=== PATIENT | female | born 1990 | race Caucasian/White ===

== ENCOUNTER 2017-07-03 08:59 | Emergency (ER) | payer MEDICAID ==
[~2017-07-03] VITALS: Ht 165.1 cm; Wt 72.6 kg
[~2017-07-03 08:59] MED LIST: TOPIRAMATE 25MG25 MG PO
[2017-07-03 09:24] LABS: HEMOGLOBIN 13.6 g/dL (12.2-16.2); LYMPH % 14.4 % (10-50.0)
--- NOTE | 2017-07-03 11:01 | RADIOLOGY REPORT PS360 ---
CT ABD PELVIS W/ CONTRAST CLINICAL INDICATION: ABD PAIN, NAUSEA, VOMITING ORDERING PHYSICIAN: Ellis Harrell MD PATIENT AGE: 27 years COMPARISON: None TECHNIQUE: Axial images obtained with sagittal and coronal reformats. PROCEDURE: Oral Contrast: None IV Contrast: 75 mL [id number]. FINDINGS: Lung bases are clear. The liver, gallbladder, spleen, adrenal glands, and pancreas have an unremarkable appearance. No renal calculi or ureteral calculi or hydronephrosis or suspicious renal mass. There is some lobulation involving the left kidney posteriorly consistent with some mild renal cortical scarring. No evidence of appendicitis, diverticulitis, intestinal obstruction, or free air. There is an oval area of rim like contrast enhancement in the right adnexal region at 3 x 2 cm slightly irregular with central isoattenuation consistent with a ruptured ovarian cyst. There is a moderate amount fluid in the cul-de-sac and in the right adnexa. Urinary bladder has an unremarkable appearance. No acute bony anomalies. IMPRESSION: The findings are consistent with ruptured right ovarian cyst with moderate amount fluid in the cul-de-sac and right adnexa No evidence of appendicitis or obstructing ureteral calculus
--- NOTE | 2017-07-03 11:38 | Emergency Room Report ---
History of Present Illness Time Seen by [id number] Presenting Problem in Triage Pt arrived:Wheelchair Presenting Problem:PT REPORTS VOMITTING FOR 2 DAYS. PT REPORTS UNABLE TO KEEP PO INTAKE DOWN PT REPORTS UPPER ABD PAIN THAT IS SHARP AND CONSTANT IN NATURE, PT STATES PAIN IS WORSE AFTER VOMITTING. REPORTS LOOSE PRODUCTIVE COUGH Onset of symptoms date/time:07/01/17/ or onset unknown for:MEDICAL HX UNKNOWN Treatment Prior to Arrival: RADIOLOGIC THERAPIST Provided by: Sepsis Risk Assessment: Temp: 98.4 B/P: 127/76 MAP: 74 Pulse: 58 Resp: 20 Recent fever? N Clinical Suspician of Infection? N Mental Status: 1 - Regular (Normal Baseline) Sepsis Risk:Low Sepsis Risk Have you (or family members/close friends) recently traveled outside the [place]? N If Yes, where/when: Have you had exposure to infectious disease within the past month? N TB? Other? Specify: Source patient, RN notes reviewed, family, RN/MD Exam Limitations no limitations Comment This is a 27-year-old lady brought in by family friend with RIGHT upper quadrant abdominal pain, intractable nausea and vomiting for the past 4 days, unable to hold anything down over the past 24 hours. The patient denies any previous similar episodes in the past. Patient has any fever, denies any diarrhea, denies any recent travel or exposure to sick contacts. ALLERGIES Coded Allergies: aspirin ("CAUSES SEIZURES" 07/03/17) ketorolac (HEADACHES 07/03/17) History Medical History General CAD? No Angina: No LA: No Hypertension? No Hyperlipidemia? No CHF? No DVT? No PE? No COPD? No Asthma? No Anemia? No GERD? No Gastric ulcers? No GI Bleed? No Hernia? No Thyroid Problems? No Hypothyroidism? No CVA? No Seizures? Yes Diabetes? No Renal Insuffiency? No End Stage Renal Disease? No UTI? No Stones? No GB Disease: No Nephritic Syndrome? No Asplenia? No Hepatitis? No Sickle Cell Disease? No Arthritis? No Migraines? No Cataracts? No Glaucoma? No MRSA? No HIV? No TB? No Anxiety? No Depression? No Cancer? No More? 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 Social History Smoking Hx Smoker: Current Every Day Smoker Tobacco: Yes Type Cigarettes Packs/day < 1 Pack Alcohol Alcohol: No Review of Systems All Other Systems Reviewed and Negative Gastrointestinal see HPI, abdominal pain, denies diarrhea, nausea, vomiting Physical Exam Vital Signs Vital Signs Date Time Temp Pulse Resp B/P Pulse O2 O2 Flow FiO2 Ox Delivery Rate 07/03 1346 98.6 74 18 137/81 100 07/03 1340 98.6 74 18 137/81 100 07/03 1204 58 20 131/81 100 07/03 1141 20 07/03 1131 58 20 127/76 100 07/03 1001 71 20 123/73 97 07/03 0914 20 07/03 0901 98.4 63 18 114/54 100 General Appearance normal appearance, WD/WN, moderate distress Respiratory Status Yes: trachea midline, chest symmetrical, non tender chest. No: respiratory distress. Lung Sounds bilateral: normal breath sounds, lungs clear. Cardiovascular normal exam, regular rate/rhythm, no peripheral edema, no gallop, no JVD, no murmur, no rub, normal peripheral pulses Gastrointestinal normal bowel sounds, soft, no organomegaly, tenderness (RUQ), no peritoneal signs Extremities non-tender, normal range of motion, normal inspection Neurologic alert, tank riveter II-XII nml as tested, normal exam, oriented x 3 Mental status normal mood/affect Skin intact, normal color, warm/dry Lymphatic no adenopathy Medical Decision Making LABS/Meds/Orders Pt receiving controlled substance in ED? No Comment Upon reevaluation patient appears medically stable, somewhat improved, with occasional recurrent episodes of nausea or vomiting. Given the patient's lack of complete improvement I have informed patient that she could be admitted for observation. Patient, however, refused the admission, wants to go home, aware of possible complications. Additional IV medications, as well as, additional IV fluids ordered. Upon reevaluation patient is asleep, in no distress, with no further nausea or vomiting. Patient will be discharged home with instructions to follow-up with one of the gynecologists, Dr. Jean or Dr. Gonsales, if no better, per discharge instructions. Results/Orders Laboratory Tests 07/03/17 0915: Sodium 140, Potassium 3.2 L, Chloride 104, Carbon Dioxide 23, BUN 6 L, Creatinine 0.9, Estimated Creat Clear 106, Estimated GFR (MDRD) 74, Glucose 135 H, Calcium 9.4, Total Bilirubin 0.8, AST 17, ALT 27, Alkaline Phosphatase 109, Total Protein 8.6 H, Albumin 4.4, Globulin 4.2 H, Albumin/Globulin Ratio 1.0 L, Amylase 37, Lipase 79, WBC 14.0 H, RBC 5.55 H, Hgb 13.6, Hct 42.3, MCV 76.2 L, RDW 15.0, Plt Count 420, MPV 8.4, Gran % 78.6, Gran # 11.0 H, Lymphocytes % 14.4, Monocytes % 4.6, Eosinophils % 1.9, Basophils % 0.4, Lymphocytes # 2.0, Monocytes # 0.6, Eosinophils # 0.3, Basophils # 0.1, PUBS MCHC 32.2, MCH 24.5 L Current Medication Orders Sig/Zhou Start time Last Medication Dose Route Stop Time Status Admin Sodium Chloride 1,000 ML .Q1H1M 07/03 1230 DC IV 07/03 1330 Sodium Chloride 10 ML PRN PRN 07/03 1230 DCD IV 07/04 1221 Morphine Sulfate 2 MG ONCE ONE 07/03 1145 DC 07/03 IV 07/03 1146 1141 Prochlorperazine 10 MG ONCE ONE 07/03 1145 DC 07/03 Edisylate IV 07/03 1146 1140 Morphine Sulfate 0 .STK-MED ONE 07/03 1140 DC .ROUTE Prochlorperazine 0 .STK-MED ONE 07/03 1139 DC Edisylate .ROUTE Potassium Chloride 40 MEQ ONCE ONE 07/03 1130 DC 07/03 PO 07/03 1131 1126 Sodium Chloride 1,000 ML .Q1H1M 07/03 1130 DC 07/03 IV 07/03 1230 1125 Sodium Chloride 10 ML PRN PRN 07/03 1130 DCD IV 07/04 1116 Potassium Chloride 0 .STK-MED ONE 07/03 1125 DC PO Sodium Chloride 1,000 ML .STK-MED ONE 07/03 1121 DC IV Iopamidol 75 ML ONCE ONE 07/03 1045 DC 07/03 IV 07/03 1046 1035 Sodium Chloride 10 ML PRN PRN 07/03 1045 DC 07/03 IV 07/03 1204 1035 Sodium Chloride 1,000 ML .Q1H1M 07/03 1045 DC IV 07/03 1145 Sodium Chloride 10 ML PRN PRN 07/03 1045 DCD IV 07/04 1041 Ondansetron HCl 0 .STK-MED ONE 07/03 1000 DC .ROUTE Ondansetron HCl 4 MG ONCE ONE 07/03 0930 DC 07/03 IV 07/03 0931 1000 Morphine Sulfate 2 MG ONCE ONE 07/03 0915 DC 07/03 IV 07/03 0916 0914 Promethazine HCl 12.5 MG ONCE ONE 07/03 0915 DC 07/03 IV 07/03 0916 0913 Sodium Chloride 10 ML PRN PRN 07/03 0915 DCD IV 07/04 0902 Sodium Chloride 25 ML ONCE ONE 07/03 0915 CAN IV 07/03 09 Sodium Chloride 1,000 ML .Q1H1M 07/03 0915 DC 07/03 IV 07/03 1015 0925 Sodium Chloride 10 ML PRN PRN 07/03 0915 DCD IV 07/04 09 Morphine Sulfate 0 .STK-MED ONE 07/03 0910 DC .ROUTE Promethazine HCl 0 .STK-MED ONE 07/03 0910 DC .ROUTE Sodium Chloride 250 ML .STK-MED ONE 07/03 09 DC IV Orders Procedure Date/time Status DIET-NOTHING BY MOUTH 07/[address] ABD/PELVIS REQ 07/03 0951 Complete SERUM , QUAL 07/03 907 Complete URINALYSIS/COMPLETE 07/03 09 Active LIPASE 07/03 903 Complete DRUG ABUSE SCREEN (10) 07/03 903 Active CBC WITH AUTO DIFF 07/03 903 Complete CHEM 12 PROFILE 07/03 903 Complete AMYLASE 07/03 903 Complete IV SALINE LOCK 07/03 09 Active XRAY/CT/US XRAY/CT/US CT abdomen, pelvis CT interpretation by discussed w/radiologist CT Results abnormal Comment See radiologist's report, consistent with ruptured RIGHT ovarian cyst. Departure Departure Time of Disposition 1258 Disposition DC Home or Self Care(routine) Clinical Impression Primary Impression: Ruptured cyst of ovary Secondary Impressions: Abdominal pain Qualifiers: Abdominal location: unspecified location Qualified Code: R10.9 - Unspecified abdominal pain Dehydration Hypokalemia Nausea and vomiting Qualifiers: Vomiting type: unspecified Vomiting Intractability: unspecified Qualified Code: R11.2 - Nausea with vomiting, unspecified Condition STABLE Referrals [place] CALVO,Shiva Granado.: Today after leaving ER Ted CALVO,Lui Garcia.: Today after leaving ER GERARD MCARTHUR (Family) Patient Instructions DI for Dehydration -- Adult, DI for Hypokalemia, DI for Ovarian Cyst Additional Instructions Please take the medications prescribed as directed, follow-up with one of the deaf/hard of hearing specialist listed above within 3-5 days, if not better. Take the medication for nausea, Zofran, 20-30 minutes prior to eating. Drink plenty of fluids. Discharge Counseling Counseled pt/family regarding diagnosis, test results, medications/RX, home care, follow up needs Comment Please take the medications prescribed as directed, follow-up with one of the deaf/hard of hearing specialist listed above within 3-5 days, if not better. Take the medication for nausea, Zofran, 20-30 minutes prior to eating. Prescriptions Current Visit Scripts Ondansetron (Zofran 4MG Odt) 4 MG PO Q6HP PRN NAUSEA AND VOMITING #30 ODT ACETAMINOPHEN/DIPHENHYDRAMINE (Percogesic 325-12.5 MG Tablet) 1 TAB PO QIDP PRN pain #20 TAB POTASSIUM BICARBONATE/CIT AC (Effer-K 20 Meq Tablet Eff) 20 MEQ PO DAILY #3 TEF ED Critical Care Critical Care No at [id number]
[2017-07-03] MEDS ORDERED: PERCOGESIC1 TAB PO (13:01)
[2017-07-03] MEDS ORDERED: ZOFRAN ODT4 MG PO (13:01)
[2017-07-03] MEDS ORDERED: EFFER-K20 MEQ PO (13:03)
[2017-07-03 13:46] VITALS: BP 137/81
== END 2017-07-03 13:47 | disposition home or self-care (01) ==
LOC: ER 08:59
PROVIDERS: Emergency Medicine
DX: N83.201 Unspecified ovarian cyst, right side (principal); R10.11 Right upper quadrant pain; E86.0 Dehydration; E87.6 Hypokalemia
CPT/HCPCS: J2405; Q9967

== ENCOUNTER 2017-07-30 06:13 | Emergency (ER) | payer MEDICAID ==
[~2017-07-30] VITALS: Ht 165.1 cm; Wt 68.9 kg
[~2017-07-30 06:13] MED LIST changes: +EFFER-K20 MEQ PO; +PERCOGESIC1 TAB PO; +ZOFRAN ODT4 MG PO
--- OUTSIDE RECORDS SUMMARY | 2017-07-30 06:36 | External Medical Summary Rpt | CCD ---
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 [address] UG 00 12 12 00 6. 1 RI 69 AD Ac 40 -0 -1 00 TE 02 AM ti 60 4- 7- 0 03 S ve 58 20 20 AI JA 20 09 09 D ME 1 PH S AR E M #3 92 0 CE 00 12 12 00 30 10 RI 68 AD Ac PH 14 -0 -1 .0 TE 99 AM ti AL 39 2- 7- 00 15 S ve EX 89 20 20 AI JA IN 70 09 09 D ME 1 PH S 50 AR E 0 M MG #3 92 CA 0 PS UL E 00 12 12 00 8. 2 RI 68 AD Ac 40 -0 -1 00 TE 99 AM ti 60 2- 7- 0 14 S ve 58 20 20 AI JA 20 09 09 D ME 1 PH S AR E M #3 92 0 Immunization Name Date Rout CVX Reac Dose Comm Prov Is Faci e tion ent ider Refu lity Give sed n TDAP 06-[address] 8-20 CLAI CLAI VACC 16 RE RE INE BANDAR BANDAR 7 ONAL ONAL YRS/ > IM MEDI MEDI C C Procedures Procedure DOS Code Location Performer Comment RADEX 83342 ST [facility] GURJIT ANKLE 7 REGIONAL COMPLETE RADIOLOG MINIMUM [address] [facility] NAS BOOT 7 REGIONAL REGIONAL PNEUMATIC FAMILY FAMILY AND OR ME ME VACUUM PREFAB RADEX [address]762 ST [facility] JILL ANKLE 7 REGIONAL COMPLETE RADIOLOG MINIMUM 3 [place] [address] [facility] NAS COBOS TALUS 7 REGIONAL FRACTURE W/O EMERGENCY MANIPULAT ION THERAPEUT [address] NAS IC 7 REGIONAL REGIONAL PROPHYLAC MEDICAL MEDICAL TIC/DX INJECTION SUBQ/IM INJECTION J2550 ST NAS ST NAS 7 REGIONAL REGIONAL PROMETHAZ MEDICAL MEDICAL INE HCL UP TO 50 MG INJECTION J1885 [address] KETOROLAC MEDICAL MEDICAL TROMETHAM INE PER 15 MG BRNCDILAT 70188 ALLERGY, LIVAS RANJIT RSPSE 6 ASTHMA & SPMTRY IMMUNOLOG PRE&POST- Y BRNCDILAT ADMN PERCUTANE 18134 ALLERGY, LIVAS RANJIT OUS TESTS 6 ASTHMA & IMMUNOLOG W/ALLERGE Y YARITZA EXTRACTS OPHTH 75679 [facility] ANT MEDICAL 6 XM&EVAL COMPRE NEW PT 1/> VST ANES 55079 [facility] [place] [facility]ARN 6 REGIONAL DLVR FLWG MEDICAL C NEURAXIAL LABOR ANALG/ANE S 88428 [place] KIA DELIVERY 6 MEDICAL ONLY SERV FOUNDATIO N NEURAXIAL 54128 [facility] 6 REGIONAL ANALG/ANE MEDICAL S PLND C VAGINAL DELIVERY INITIAL 13418 [facility] 6 NAS CARE/DAY FAMILY 50 CARE MINUTES CLINI URNLS DIP 77448 [facility] 6 REGIONAL REGIONAL STICK/TAB MEDIC MEDIC LET RGNT NON-AUTO W/O MICRSCP URNLS DIP 73168 [facility] 6 REGIONAL REGIONAL STICK/TAB MEDIC MEDIC LET RGNT AUTO W/O MICROSCOP Y US PREG 72934 [facility] UTERUS 6 REGIONAL REGIONAL REAL TIME MEDIC MEDIC F/U TRNSABDL PER FETUS 92055 [facility] NONSTRESS 6 REGIONAL REGIONAL TEST MEDIC MEDIC URNLS DIP 91098 [facility] 6 REGIONAL REGIONAL STICK/TAB MEDIC MEDIC LET RGNT NON-AUTO W/O MICRSCP 07466 [facility] NONSTRESS 6 REGIONAL REGIONAL TEST MEDIC MEDIC URNLS DIP 37673 [facility] REGIONAL STICK/TAB MEDIC MEDIC LET REAGENT AUTO MICROSCOP Y URNLS DIP 33701 [facility] 6 REGIONAL REGIONAL STICK/TAB MEDIC MEDIC LET REAGENT AUTO MICROSCOP Y [address] [facility] NONSTRESS 6 REGIONAL REGIONAL TEST MEDIC MEDIC URNLS DIP [address] NAS 6 REGIONAL REGIONAL STICK/TAB MEDIC MEDIC LET RGNT NON-AUTO W/O MICRSCP [place] ADM [address] NAS PRQ ID 6 REGIONAL REGIONAL SUBQ/IM MEDIC MEDIC NJXS [address] D[address] NAS 6 REGIONAL REGIONAL STICK/TAB MEDIC MEDIC LET RGNT NON-AUTO W/O MICRSCP TDAP [address] NAS VACCINE 7 6 REGIONAL REGIONAL YRS/> IM MEDIC MEDIC URNLS DIP [address] NAS 6 REGIONAL REGIONAL STICK/TAB MEDIC MEDIC LET RGNT AUTO W/O MICROSCOP Y EVAL C/V [address] [facility] AMNIOTIC 6 REGIONAL REGIONAL FLUID MEDIC MEDIC PROTEIN QUAL EA SPECIMEN [address] [facility] NONSTRESS 6 REGIONAL REGIONAL TEST MEDIC MEDIC CUL [address] [facility] PRSMPTV 6 REGIONAL REGIONAL PTHGNC MEDIC MEDIC ORGANISM SCRN W/COLONY ESTIMJ US PREG [address] [facility] UTERUS 6 REGIONAL REGIONAL AFTER 1ST MEDIC MEDIC TRIMEST 1/ GESTATION URNLS DIP [address] NAS 6 REGIONAL REGIONAL STICK/TAB MEDIC MEDIC LET RGNT NON-AUTO W/O MICRSCP RADEX 95931 ST NAS JILL ANKLE 6 REGIONAL LIZETH COMPLETE RADIOLOG MINIMUM [address] NAS 6 REGIONAL REGIONAL STICK/TAB MEDIC MEDIC LET RGNT NON-AUTO W/O MICRSCP COLLECTIO [address] NAS N VENOUS 6 REGIONAL REGIONAL BLOOD MEDIC MEDIC VENIPUNCT URE GLUCOSE [address] [facility] TOLERANCE 6 REGIONAL REGIONAL EA ADDL MEDIC MEDIC BEYOND [address] [facility] TOLERANCE 6 REGIONAL REGIONAL TEST GTT MEDIC MEDIC 3 SPECIMENS GLUC BLD [address] NAS GLUC MNTR 6 REGIONAL REGIONAL DEV MEDIC MEDIC CLEARED FDA SPEC HOME USE BLOOD [address] NAS COUNT 6 REGIONAL REGIONAL HEMOGLOBI MEDIC MEDIC N GLUCOSE [address] NAS POST 6 REGIONAL REGIONAL GLUCOSE MEDIC MEDIC DOSE URNLS DIP [address] NAS 6 REGIONAL REGIONAL STICK/TAB MEDIC MEDIC LET RGNT NON-AUTO W/O MICRSCP URNLS DIP [address] NAS 6 REGIONAL REGIONAL STICK/TAB MEDIC MEDIC LET RGNT AUTO W/O MICROSCOP Y SMR PRIM [address] NAS SRC WET 6 REGIONAL REGIONAL MOUNT MEDIC MEDIC NFCT AGT CULTURE [address] NAS BACTERIAL 6 REGIONAL REGIONAL MEDIC MEDIC QUANTTATI VE COLONY COUNT URINE URNLS DIP [address] NAS 6 REGIONAL REGIONAL STICK/TAB MEDIC MEDIC LET REAGENT AUTO MICROSCOP Y FTL [address] NAS FIBRONECT 6 REGIONAL REGIONAL IN MEDIC MEDIC CERVICOVA [place] [address] [facility] INFUSION 6 REGIONAL REGIONAL HYDRATION MEDIC MEDIC INITIAL 31 MIN-[address] NAS 6 REGIONAL REGIONAL STICK/TAB MEDIC MEDIC LET RGNT AUTO W/O MICROSCOP Y URNLS DIP [address] NAS 6 REGIONAL REGIONAL STICK/TAB MEDIC MEDIC LET [place] [address] [facility] INFUSION 6 REGIONAL REGIONAL HYDRATION MEDIC MEDIC EACH ADDITIONA L HOUR US PREG [address] [facility] UTERUS 6 REGIONAL REGIONAL AFTER 1ST MEDIC MEDIC TRIMEST / GESTATION URNLS DIP [address] NAS 6 REGIONAL REGIONAL STICK/TAB MEDIC MEDIC LET RGNT NON-AUTO W/O MICRSCP US PREG 43881 GURJIT LUIS MANUEL GURJIT LUIS MANUEL UTERUS 6 AFTER 1ST TRIMEST 1/ GESTATION URNLS DIP [address] NAS 6 REGIONAL REGIONAL STICK/TAB MEDIC MEDIC LET RGNT NON-AUTO W/O MICRSCP [place] [address] ST NAS MOROCHO JT LOWER 5 REGIONAL REGIONAL EXTREM MEDIC MEDIC W/O CONTRAST MATRL RADIOLOGI [address]19 [facility] [place] II C 5 DEPUTY SHERIFF LIEUTENANT EXAMINATI RADIOLOG ON TIBIA & FIBULA [address] NAS [place] II C EXAM 5 DEPUTY SHERIFF LIEUTENANT KNEE RADIOLOG COMPLETE 4/MORE VIEWS RADEX 87572 ST NAS MELCHOR ANKLE 5 REGIONAL LIZETH COMPLETE RADIOLOG MINIMUM [address] V[address] NAS MELCHOR FOOT 5 REGIONAL LIZETH COMPLETE RADIOLOG MINIMUM [address] [place] [address] [address] NAS CAGLE LUIS MANUEL ABDOMINAL 5 REGIONAL REAL RADIOLOG TIME W/IMAGE LIMITED RADEX 38997 ST NAS MELCHOR FINGR 5 REGIONAL LIZETH MINIMUM 2 RADIOLOG VIEWS SPINAL 31663 KYLEIGH KYLEIGH PUNCTURE 4 AMIRA AMIRA LUMBAR DIAGNOSTI C BLOOD 71200 [facility] QUEST COUNT 4 DIAGNOSTI DIAGNOSTI COMPLETE CS CS AUTO&AUTO DIFRNTL WBC SEDIMENTA 29580 QUE[facility] QUEST TION RATE 4 DIAGNOSTI [place] [address] AYANA PIÑA HEAD/BRAI 4 III KASSI III KASSI N W/O CONTRAST MATERIAL RADEX 69643 GURJIT ARIAS ANKLE 4 PRIMARY JAM COMPLETE CARE MINIMUM 3 CENTER VIEWS IADNA 44673 [facility] HEPATITIS 4 DIAGNOSTI DIAGNOSTI C QUANT CS CS & REVERSE TRANSCRIP TION HEPATIC 70518 QUEST QUEST FUNCTION 4 DIAGNOSTI DIAGNOSTI PANEL CS CS HEPATITIS 58887 QUEST QUEST C 4 DIAGNOSTI DIAGNOSTI ANTIBODY CS CS RADEX 15351 ANU MICHELLE ANKLE 4 MEDICAL CODY COMPLETE IMAGING MINIMUM 3 ASS VIEWS RADEX 19484 ATTILA CASON ANKLE 4 COLT COMPLETE RADIOLOGY MINIMUM 3 ASSOCIAT VIEWS INJECTION J1885 STAR GRAVES 4 W W KETOROLAC REGIONAL REGIONAL MEDICAL MEDICAL TROMETHAM INE PER 15 MG THERAPEUT 85934 STAR GRAVES IC 4 W W PROPHYLAC REGIONAL REGIONAL TIC/DX MEDICAL MEDICAL INJECTION SUBQ/IM VAGINAL 11-06-201 26974 [facility] DELIVERY 2 JAM JAM ONLY W/POSTPAR CHERI CARE NEURAXIAL 54125 MUSLIM MELIO GREGORIA LABOR 2 ANESTHESI ANALG/ANE A PSC S PLND VAGINAL DELIVERY 41090 [facility] BIOPHYSIC 2 JAM JAM AL PROFILE NON-STRES S TESTING OTHER 7359 [facility] MANUALLY 2 [facility]LIM [facility] ASSISTED [facility] H[facility] DELIVERY OTHER 7309 [facility] ARTIFICIA 2 MUSLIM [facility] L RUPTURE [facility] 93214 [facility] BIOPHYSIC 2 JAM JAM AL PROFILE NON-STRES S TESTING 15304 [facility] NONSTRESS 2 MUSLIM MUSLIM TEST HOSP HOSP 08857 [facility]LIM NONSTRESS 2 LABORIST LABORIST TEST SERVICE SERVICE 95849 [facility] NONSTRESS 2 JAM JAM TEST 66180 [facility] NONSTRESS 2 JAM JAM TEST CYTP C/V 86773 ASSOCIATE BELLETO AUTO THIN [address] LYR PATHOLOGI PREPJ SCR STS PLC MNL RESCR PHYS IADNA 31250 ASSOCIATE BELLETO PAPILLOMA [address] VIRUS PATHOLOGI HUMAN STS PLC AMPLIFIED PROBE TQ URNLS DIP 09131 PATH PATH 2 GROUP GROUP STICK/TAB LABS [employer] [facility] [employer] LET REAGENT AUTO MICROSCOP Y US PREG 14368 [facility] UTERUS 2 JAM JAM AFTER 1ST TRIMEST GESTATION IADNA 35955 ASSOCIATE BELLETO NEISSERIA [address] GONORRHOE STS PLC AE AMPLIFIED PROBE TQ IADNA 27080 ASSOCIATE VIPINNINGTO CHLAMYDIA [address]OLOG[address] TRACHOMAT STS PLC IS AMPLIFIED PROBE TQ CULTURE 54043 PATH PATH BACTERIAL 2 GROUP GROUP LABS [employer] QUANTTATI VE COLONY COUNT URINE IADNA 87099 TOÑO ZIMMERMAN ANGEL CHLAMYDIA 2 COMMUNITY TRACHOMAT HEALTH C IS AMPLIFIED PROBE TQ URINE 82723 TOÑO ZIMMERMAN ANGEL 2 TEST [facility] VISUAL HEALTH C COLOR CMPRSN METHS IADNA 59047 TOÑO ZIMMERMAN ANGEL NEISSERIA 2 COMMUNITY GONORRHOE HEALTH C AE AMPLIFIED PROBE TQ GLUC BLD 08995 TOÑO ZIMMERMAN ANGEL GLUC MNTR 2 DEV COMMUNITY CLEARED HEALTH C FDA SPEC HOME USE CUL BACT 83555 STAR MOWVIE XCPT 2 W W URINE REGIONAL REGIONAL BLOOD/STO MEDICAL MEDICAL OL AEROBIC ISOL SMR PRIM 51070 MEADOWVIE MEADOWVIE SRC 2 W W GRAM/GIEM REGIONAL REGIONAL SA STAIN MEDICAL MEDICAL BCT FUNGI/EFRAIN L US PREG 28033 MEADOWVIE MEADOWVIE UTERUS 2 W W REAL TIME REGIONAL REGIONAL W/IMAGE MEDICAL MEDICAL DCMTN TRANSVAG SMR PRIM 43838 MEADOWVIE MEADOWVIE SRC WET 2 W W [facility] NF[facility] AGT MEDICAL MEDICAL IADNA 14458 CHELYWVALORIE MEADOWVIE CHLAMYDIA 2 W W [facility] TRACHOMAT MEDICAL MEDICAL IS AMPLIFIED PROBE TQ CULTURE 85184 CHELYWVALORIE LATISHA BACTERIAL 2 W [facility] QUANTTATI MEDICAL VE COLONY COUNT URINE COLLECTIO 94982 MEAWVALORIE MOWVIE N VENOUS 2 W W BLOOD [facility] VENIPUNCT MEDICAL MEDICAL URE GONADOTRO 06433 MEADOWVIE MEADOWVIE PIN 2 W W CHORIONIC [facility] MEDICAL MEDICAL QUANTITAT LLOYD URNLS DIP 61164 MEAWVALORIE MEADOWVIE 2 W W STICK/TAB REGIONAL REGIONAL LET MEDICAL MEDICAL REAGENT AUTO MICROSCOP Y BLOOD 39015 MEADOWVIE MEADOWVIE COUNT 2 W W COMPLETE REGIONAL REGIONAL AUTO&AUTO MEDICAL MEDICAL DIFRNTL WBC INCISION 38467 MJ MOON & 0 EMERGENCY CHR DRAINAGE SERVICES ABSCESS SIMPLE/SI NGLE APPL 83306 ATTILA RUBIO MODALITY 0 FAMILY RIT 1/> AREAS CHIROPRAC TI ULTRAVIOL ET MANUAL 03933 KAIBETOSUNITA RUBIO THERAPY 0 FAMILY RIT TQS 1/> CHIROPRAC REGIONS TI EACH 15 MINUTES CHIROPRAC 28131 ATTILA RUBIO TIC 0 FAMILY RIT MANIPULAT CHIROPRAC LLOYD TX TI SPINAL 3-4 REGIONS CHIROPRAC 04675 ATTILA RUBIO TIC 0 FAMILY RIT MANIPLTV CHIROPRAC TX TI EXTRASPIN AL 1/> REGION WALKING L4386 GIOVANY Mcbride BOOT 0 KOO KOO NON-PNEUM DPM DPM ATIC PREFAB CUSTOM FIT PARTIAL 20988 KOO KOO EXCISION 0 AIYANA [place] BONE TALUS/KENDRA CANEUS CORRJ 15090 KOO KOO HALLUX 0 AIYANA AIYANA VALGUS W/SESMDC W/DIST METAR OSTEOT ANES OPEN 87055 INDEPENDE YASMINE DAM PROC 0 NT BONES ANESTHESI LOWER OLOGIST LEG/ANKLE /FOOT NOS RADEX 42584 RADIOLOGY LEIF FOOT 0 TUS COMPLETE ASSOCIATE MINIMUM 3 S PSC VIEWS URINE 76283 [facility]LEX[facility]DRO [facility] TEST INC [place] [address] ALEXANDRO MC HEAD/BRAI 0 [facility] N W/[place] [address] ALEXANDRO MC INFUSION 0 [facility] THERAPY/P INC INC ROPHYLAXI S /DX 1ST TO 1 HR URNLS DIP 32380 ALEXANDRO MC 0 [facility] STICK/TAB INC INC LET REAGENT AUTO MICROSCOP Y 3D 73874 ALEXANDRO MC RENDERING 0 [facility] W/INTERP INC INC & POSTPROCE SS [facility] 46700 [facility] SHOWER, DISCHARGE 0 PRIMARY PRANEETH L DAY CARE MANAGEMEN CENTERINC T 30 MIN/< SBSQ 88336 [facility] SHOWER, HOSPITAL 0 PRIMARY PRANEETH L CARE/DAY CARE 15 CENTERINC MINUTES NEURAXIAL 97460 [facility] LABOR 0 LTH , MARI ANALG/ANE ANESTHESI S PLND A PSC VAGINAL DELIVERY VAGINAL 40873 [facility] SHOWER, DELIVERY 0 PRIMARY PRANEETH L ONLY CARE CENTERINC 24265 [facility] SHOWER, NONSTRESS 0 PRIMARY PRANEETH L TEST CARE CENTERINC URNLS DIP 53391 GURJIT CO SHOWER, 0 PRIMARY PRANEETH L STICK/TAB CARE LET RGNT CENTERINC NON-AUTO W/O MICRSCP OTHER 7359 STAR GRAVES MANUALLY 0 W W ASSISTED [facility] CENTER REPAIR OF 7569 STAR GRAVES OTHER 0 W W [facility] OBSTETRIC FOR[facility] NAMED [facility] CENTER LACERATIO N 97710 GURJIT PABON CAROL, NONSTRESS 0 PRIMARY SUGEY R TEST CARE CENTERINC SMR PRIM 12799 [facility], SRC WET 0 [facility] NFCT AGT CARE, INC. CUL 05116 STAR GRAVES PRSMPTV 0 W W [facility] CENTER W/COLONY ESTIMJ URNLS DIP 34554 GURJIT PABON YOUNG, 0 PRIMARY CARRIE STICK/TAB CARE LET RGNT CENTERINC NON-AUTO W/O MICRSCP CHIROPRAC 77201 ATTILA RUBIO, TIC 0 FAMILY PAULINE R MANIPLTV CHIROPRAC TX TIC EXTRASPIN AL 1/> REGION MANUAL 01001 ATTILA RUBIO, THERAPY 0 FAMILY PAULINE R TQS 1/> CHIROPRAC REGIONS TIC EACH 15 MINUTES CHIROPRAC 72599 ATTILA RUBIO, DREA 0 FAMILY PAULINE R MANIPULAT CHIROPRAC LLOYD TX TIC SPINAL 3-4 REGIONS THERAPEUT 78096 ATTILA RUBIO IC PX 1/> 0 FAMILY PAULINE R AREAS CHIROPRAC EACH 15 TIC MIN EXERCISES APPL 98321 ATTILA RUBIO, MODALITY 0 FAMILY PAULINE R 1/> AREAS CHIROPRAC TIC ULTRAVIOL ET RADEX 81918 STAR DOBSONRITIKAVALORIE ELBOW 2 0 W W [facility] C[facility] 54517 GURJIT PABON SHOWER, NONSTRESS 0 PRIMARY PRANEETH L TEST CARE CENTERINC INSJ 64286 GURJIT CO SHOWER, NON-NDWEL 0 PRIMARY PRANEETH L LG CARE BLADDER CENTERINC CATHETER CULTURE 65201 LABORATOR LABORATOR BACTERIAL 0 Y & Y & BIODIAGNO BIODIAGNO QUANTTATI STICS STICS VE COLONY COUNT URINE URNLS DIP 10725 GURJIT PABON SHOWER, 0 PRIMARY PRANEETH L STICK/TAB CARE LET RGNT CENTERINC NON-AUTO W/O MICRSCP URNLS DIP 11843 LABORATOR LABORATOR 0 Y & Y & STICK/TAB BIODIAGNO BIODIAGNO LET RGNT STICS STICS AUTO W/O MICROSCOP Y URNLS DIP 86385 GURJIT PABON YOUNG, 0 PRIMARY CARRIE STICK/TAB CARE LET RGNT CENTERINC NON-AUTO W/[place] [address] FLORENCIA DON, RADIAL 0 K. K. HEAD/NECK CALLIE LEDESMA FX W/[place] P[place] 81840 GURJIT PABON MEESE, UTERUS 0 PRIMARY ROMELIA P W/DETAIL CARE CENTERINC CEE 1ST GESTATION IADNA 34124 LABORATOR LABORATOR GARDNEREL 0 Y & Y & LA BIODIAGNO BIODIAGNO VAGINALIS STICS STICS DIRECT PROBE TQ IADNA 10896 LABORATOR LABORATOR TRICHOMON 0 Y & Y & BIODIAGNO BIODIAGNO VAGINALIS STICS STICS DIRECT PROBE TQ IADNA 12227 LABORATOR LABORATOR CHLAMYDIA 0 Y & Y & BIODIAGNO BIODIAGNO TRACHOMAT STICS STICS IS AMPLIFIED PROBE TQ IADNA 72834 LABORATOR LABORATOR NEISSERIA 0 Y & Y & BIODIAGNO BIODIAGNO GONORRHOE STICS STICS AE AMPLIFIED PROBE TQ CHIROPRAC 15003 DREA HOWE 0 FAMILY PAULINE R MANIPULAT CHIROPRAC LLOYD TX TIC SPINAL 3-4 REGIONS MANUAL 62703 YISEL HOWE 0 FAMILY PAULINE R TQS 1/> CHIROPRAC REGIONS TIC EACH 15 MINUTES CHIROPRAC 15581 DREA HOWE 0 FAMILY PAULINE R MANIPLTV CHIROPRAC TX TIC EXTRASPIN AL 1/> REGION APPL 39675 QUEENIE HOWE 0 FAMILY PAULINE R 1/> AREAS CHIROPRAC TRACTION TIC MECHANICA L URNLS DIP 75337 GURJIT LUJAN, 9 PRIMARY CARRIE STICK/TAB CARE LET RGNT CENTER[place] [address] GURJIT LUJAN, 9 PRIMARY CARRIE UTERUS 14 CARE WK CENTERINC TRANSABDL GESTAT COLLECTIO 21336 GURJIT LUJAN, N VENOUS 9 PRIMARY CARRIE BLOOD CARE VENIPUNCT CENTERINC URE MOLEC 12953 QUEST COSME QUEST COSME ISOL/XTRJ 9 RADHA [facility] ACID EA TYPE URINE 31777 GURJIT LUJAN, 9 PRIMARY CARRIE TEST CARE VISUAL CENTERINC COLOR CMPRSN METHS MOLECULAR 41907 QUEST COSME QUEST COSME DX AMP 9 RADHA CAINOLAS TARGET MULTIPLEX [facility] 1ST 2 SEQ MOLECULAR 41990 QUEST COSME QUEST COSME 9 RADHA RADHA DIAGNOSTI [facility] INTERPRET ATION & REPORT MUTATION 30104 QUEST COSME QUEST COSME ID 9 RADHA GARCIA ENZYMATIC [facility] LIG/PRIME R XTN 1 SGM EA MOLECULAR 79032 QUEST CSOME QUEST COSME DX AMP 9 RADHA RADHA TARGET [facility] EA ADDL SEQ MOLEC 61402 QUEST COSME QUEST COSME SEP&ID HI [address] [facility] NUCLEIC ACID PREP APPL 12813 QUEENIE HOWE 9 FAMILY PAULINE R 1/> AREAS CHIROPRAC TRACTION TIC MECHANICA L CHIROPRAC 80759 DREA HOWE 9 FAMILY PAULINE R MANIPLTV CHIROPRAC TX TIC EXTRASPIN AL 1/> REGION THERAPEUT 62582 LELA HOWE PX 1/> 9 FAMILY PAULINE R AREAS CHIROPRAC EACH 15 TIC MIN EXERCISES CHIROPRAC 05778 DREA HOWE 9 FAMILY PAULINE R MANIPULAT CHIROPRAC LLOYD TX TIC SPINAL 3-4 REGIONS MANUAL 18364 YISEL HOWE 9 FAMILY PAULINE R TQS 1/> CHIROPRAC REGIONS TIC EACH 15 MINUTES CHIROPRAC 51928 DREA HOWE 9 FAMILY PAULINE R MANIPULAT CHIROPRAC LLOYD TX TIC SPINAL 3-4 REGIONS MANUAL 05538 ATTILA RUBIO, THERAPY 9 FAMILY PAULINE R TQS 1/> CHIROPRAC REGIONS TIC EACH 15 MINUTES THERAPEUT 98789 ATTILA RUBIO IC PX 1/> 9 FAMILY PAULINE R AREAS CHIROPRAC EACH 15 TIC MIN EXERCISES CHIROPRAC 98131 ATTILA DREA RUBIO 9 FAMILY PAULINE R MANIPLTV CHIROPRAC TX TIC EXTRASPIN AL 1/> REGION CHIROPRAC 18320 ATTILA RUBIO, TIC 9 FAMILY PAULINE R MANIPLTV CHIROPRAC TX TIC EXTRASPIN AL 1/> REGION APPL 97487 ATTILA RUBIO, MODALITY 9 FAMILY PAULINE R 1/> AREAS CHIROPRAC TRACTION TIC MECHANICA L SELF-CARE 67759 ATTILA RUBIO, /HOME 9 FAMILY PAULINE R MGMT CHIROPRAC TRAINING TIC EACH 15 MINUTES STRAPPING 55997 ATTILA JOANNE LOW BACK 9 FAMILY PAULINE R CHIROPRAC TIC MANUAL 65108 AVIFIDEL RUBIO THERAPY 9 FAMILY PAULINE R TQS 1/> CHIROPRAC REGIONS TIC EACH 15 MINUTES CHIROPRAC 59018 ATTILA DREA RUBIO 9 FAMILY PAULINE R MANIPULAT CHIROPRAC LLOYD TX TIC SPINAL 3-4 REGIONS Encounters Encounter Start End Date Code Location Performer Type Date OFFICE 80005 GURJIT MOSS 7 7 FAMILY T VISIT HEALTH 15 CTR MINUTES EMERGENCY [address] [facility] 7 7 REGIONAL DEPARTMEN T VISIT EMERGENCY HIGH/URGE NT SEVERITY OFFICE 9[address] [facility] 7 7 SURGICAL T VISIT SPECIALIS 25 [address] [facility] 7 7 REGIONAL T VISIT MEDICAL [address] [facility] [place] 7 7 REGIONAL OUTPATIEN MEDICAL T EMERGENCY [address] [facility] [place] 7 7 REGIONAL DEPARTMEN T VISIT EMERGENCY HIGH/URGE NT SEVERITY OFFICE 309[address] [facility] 7 7 NAS T VISIT FAMILY 15 MEDICINE [address] E [facility] - 7 7 REGIONAL OUTPATIEN MEDICAL T OFFICE 69784 [facility] T VISIT MEDICAL [address] [facility] OUTPATIEN 6 6 REGIONAL T VISIT [address] [facility] - 6 6 REGIONAL OUTPATIEN MEDICAL T OFFICE 23084 STRubin JANG OUTPATIEN 6 6 NAS T VISIT FAMILY 15 MEDICINE MINUTES E EMERGENCY 78600 [facility] 6 [facility] V[facility] - 6 6 REGIONAL OUTPATIEN MEDIC T OFFICE 46665 STRubin L[facility]Z [facility] 6 NAS KRI T VISIT FAMILY 15 MEDICINE MINUTES E OFFICE 64614 [facility] 6 6 REGIONAL T VISIT 5 MEDIC MINUTES OFFICE 01429 ALLERGY, LIVAS [facility]ANJIT [facility] 6 6 ASTHMA & T NEW 45 IMMUNOLOG MINUTES Y OFFICE 55795 [place] ANNA KIA [facility] 6 6 MEDICAL T VISIT SERV 15 FOUNDATIO MINUTES N OFF[address] [facility] [place] [facility] OUT[facility] 6 6 NAS T VISIT FAMILY 15 CARE MINUTES CLINI OFFICE 97150 [facility] 6 6 REGIONAL T VISIT [address] [facility] - 6 6 [facility] OFF[facility] 85762 [facility] OUTPATIEN 6 6 REGIONAL T VISIT MEDIC [address] [facility] - 6 6 REGIONAL OUTPATIEN MEDIC T [facility] - 6 6 REGIONAL OUTPATIEN MEDIC T OFFICE 04929 [facility] OUTPATIEN 6 6 REGIONAL T VISIT 5 MEDIC MINUTES OFFICE [address] [facility] OUTPATIEN 6 6 NAS SUPERVISING CHEF T VISIT FAMILY 15 CARE MINUTES [facility]INI [facility] - 6 6 REGIONAL OUTPATIEN MEDIC T OFFICE 56811 [facility] OUTPATIEN 6 6 REGIONAL T VISIT MEDIC [address] [facility] OUTPATIEN 6 6 REGIONAL T VISIT MEDIC [address] [facility] - 6 6 REGIONAL OUTPATIEN MEDIC T OFFICE 75905 [facility] 6 6 NAS T VISIT FAMILY 15 CARE MINUTES CLINI OFFICE [address]49 [facility] OUTPATIEN 6 6 REGIONAL T VISIT [address] [facility] - 6 6 REGIONAL OUTPATIEN MEDIC T OFFICE 71897 [facility] OUTPATIEN 6 6 REGIONAL T VISIT MEDIC [address] [facility] - 6 6 REGIONAL OUTPATIEN MEDIC T OFFICE 92135 [facility] OUTPATIEN 6 6 FAMILY T VISIT MEDICINE- 15 OW MINUT[address] OFFICE [address]45 [facility] OUTPATIEN 6 6 REGIONAL T VISIT MEDIC [address] [facility] - 6 6 REGIONAL OUTPATIEN MEDIC T [facility] - 6 6 REGIONAL OUTPATIEN MEDIC T OFFICE 98272 [facility] 6 6 SURGICAL T VISIT SPECIALIS 15 T MINUTES OFFICE [address]89 [facility] OUTPATIEN 6 6 REGIONAL T VISIT MEDIC [address] [facility] - 6 6 REGIONAL OUTPATIEN MEDIC T OFFICE [address]53 [facility] OUTPATIEN 6 6 REGIONAL T VISIT [address] [facility] - 6 6 REGIONAL OUTPATIEN MEDIC T OFFICE 83743 [facility] OUTPATIEN 6 6 NAS T VISIT FAMILY 15 CARE MINUTES CLINI OFFICE 49861 [facility] OUTPATIEN 6 6 REGIONAL T VISIT [address] [facility] - 6 6 REGIONAL OUTPATIEN MEDIC T [facility] - 6 6 REGIONAL OUTPATIEN MEDIC T EMERGENCY 66051 [facility] S[facility]ZA 6 6 REGIONAL LIS DEPARTMEN T VISIT EMERGENCY MODERATE SEVERITY OFFICE 62988 [facility] OUTPATIEN 6 6 REGIONAL T VISIT [address] [facility] - 6 6 REGIONAL OUTPATIEN MEDIC T OFFICE 12524 [facility] OUTPATIEN 6 6 NAS T VISIT FAMILY 15 CARE [address] [facility] - 6 6 REGIONAL OUTPATIEN MEDIC T OFFICE [id number] [facility] OUT[facility]EN 6 6 NAS T VISIT FAMILY 15 CARE MINUTES CLINI OFFICE 06325 [facility] OUTPATIEN 6 6 REGIONAL T VISIT MEDIC [address] [facility] - 6 6 REGIONAL OUTPATIEN MEDIC T OFFICE 64311 [facility] OUTPATIEN 6 6 REGIONAL T VISIT MEDIC 10 MINUTES OFFICE 87251 LUNA LUNA OUTPATIEN 6 6 KATARINA KATARINA T VISIT [address] [facility] - 6 6 REGIONAL OUTPATIEN MEDIC T EMERGENCY 13898 [facility] 6 6 REGIONAL DEPARTMEN MEDIC T VISIT LOW/MODER SEVERITY HOSPITAL [facility] - 6 6 REGIONAL OUTPATIEN MEDIC T EMERGENCY 44151 LIBBY EPPSSTEIN 6 6 LIS LIS DEPARTMEN T VISIT MODERATE SEVERITY OFFICE 85378 [facility] BERMUDEZA OUTPATIEN 6 6 NAS T VISIT FAMILY 15 CARE MINUTES CLINI OFFICE 97114 [facility] OUTPATIEN 6 6 REGIONAL T VISIT MEDIC [address] NAS - 6 6 REGIONAL OUTPATIEN MEDIC T OFFICE 90208 [facility] OUTPATIEN 6 6 REGIONAL T VISIT [address] [facility] - 6 6 REGIONAL OUTPATIEN MEDIC T [facility]PITAL [facility] - 6 6 REGIONAL OUTPATIEN MEDIC T OFFICE 73325 [facility] OUTPATIEN 6 6 REGIONAL T VISIT MEDIC [address] [facility] 6 [facility] 70553 [facility] CLAUD[facility] OUTPATIEN 6 6 NAS SUPERVISING CHEF T VISIT FAMILY 15 CARE MINUTES CLINI OFFICE 28854 [facility] OUTPATIEN 6 6 REGIONAL T VISIT 5 MEDIC MINUTES OFFICE 07989 [facility] OUTPATIEN 6 6 REGIONAL T VISIT 5 MEDIC MINUTES OFFICE 07505 [facility] NAOMY OUTPATIEN 6 6 NAS T VISIT FAMILY 10 MEDICINE MINUTES E [facility] - 6 6 REGIONAL OUTPATIEN MEDIC T EMERGENCY 22825 [facility] PACE LUIS MANUEL 6 6 REGIONAL DEPARTMEN T VISIT EMERGENCY HIGH/URGE NT SEVERITY [facility]PITAL [facility] - 6 6 REGIONAL OUTPATIEN MEDIC T [facility]PITAL [facility] - 6 6 REGIONAL OUTPATIEN MEDIC T OFFICE 34267 STRubin TAYLOR OUTPATIEN 6 6 NAS SUPERVISING CHEF T VISIT FAMILY 15 CARE MINUTES CLINI [facility] - 6 6 REGIONAL OUTPATIEN MEDIC T OFFICE 26819 [facility] OUTPATIEN 6 6 REGIONAL T VISIT [address] [facility] - 6 6 REGIONAL OUTPATIEN MEDIC T EMERGENCY 43037 [facility] FAY OSMIN 6 6 REGIONAL DEPARTMEN T VISIT EMERGENCY MODERATE [facility] ST [facility] - 6 6 [facility] 65751 [facility] OUTPATIEN 6 6 REGIONAL T VISIT 5 MEDIC MINUTES OFFICE 33[address] [facility] [place] OUTPATIEN 6 6 NAS SIE T VISIT FAMILY 15 MEDICINE MINUTES E OFFICE 38399 [facility] OUTPATIEN 6 6 REGIONAL T VISIT 5 MEDIC MINUTES OFFICE 27802 [facility] DAET OUTPATIEN 6 6 NAS FRA T VISIT FAMILY 15 CARE MINUTES CLINI [facility] NAS - 6 6 REGIONAL OUTPATIEN MEDIC T OFFICE 70099 [facility] OUTPATIEN 5 5 NAS FRA T VISIT FAMILY 25 CARE MINUTES CLINI OFFICE 84540 [facility] AMA OUTPATIEN 5 5 NAS T VISIT FAMILY 15 CARE MINUTES [facility]INI [facility] - 5 5 REGIONAL OUTPATIEN MEDIC T OFFICE 79274 [facility] OUTPATIEN 5 5 REGIONAL T VISIT 5 MEDIC MINUTES OFFICE 77039 [facility] OUTPATIEN 5 5 REGIONAL T VISIT [address] [facility] - 5 5 REGIONAL OUTPATIEN MEDIC T [facility] - 5 5 REGIONAL OUTPATIEN MEDIC T OFFICE 11637 [facility] [place] OUTPATIEN 5 5 NAS SIE T VISIT FAMILY 15 MEDICINE MINUTES E OFFICE 39520 [facility] OUTPATIEN 5 5 REGIONAL T VISIT 5 MEDIC MINUTES EMERGENCY 68892 ST [facility] BEN JUS 5 5 REGIONAL DEPARTMEN T VISIT EMERGENCY HIGH/URGE NT SEVERITY [facility]PITAL [facility] NAS - 5 5 REGIONAL OUTPATIEN MEDIC T OFFICE 58049 [place] OUTPATIEN 5 5 SURGICAL III SHARON T VISIT SPECIALIS 15 T MINUTES OFFICE [address]73 [facility] OUTPATIEN 5 5 REGIONAL T VISIT MEDIC [address] NAS - 5 5 REGIONAL OUTPATIEN MEDIC T OFFICE 13267 [facility] OUTPATIEN 5 5 REGIONAL T VISIT MEDIC [address] NAS - 5 5 REGIONAL OUTPATIEN MEDIC T OFFICE 99904 [place] OUTPATIEN 5 5 SURGICAL III SHARON T VISIT SPECIALIS 25 T MINUTES OFFICE 73192 STRubin TAYLOR OUTPATIEN 5 5 NAS SUPERVISING CHEF T VISIT FAMILY 15 CARE MINUTES [facility]INI [facility] NAS - 5 5 REGIONAL OUTPATIEN MEDIC T OFFICE 46164 [facility] NAS OUTPATIEN 5 5 REGIONAL T VISIT 5 MEDIC MINUTES OFFICE 90694 ST NAS OUTPATIEN 5 5 REGIONAL T VISIT MEDIC [address] NAS - 5 5 REGIONAL OUTPATIEN MEDIC T OFFICE 59619 [place] OUTPATIEN 5 5 SURGICAL III SHARON T VISIT SPECIALIS 25 T MINUTES EMERGENCY 90757 ST [facility] OVERALL 5 5 REGIONAL PHI DEPARTMEN T VISIT EMERGENCY HIGH/URGE NT SEVERITY EMERGENCY 47597 ST NAS SEGOVIA 5 5 REGIONAL CAR DEPARTMEN T VISIT EMERGENCY HIGH/URGE NT SEVERITY EMERGENCY 00315 ST [facility] SEGOVIA DEPT 5 5 REGIONAL CAR VISIT HIGH EMERGENCY SEVERITY& THREAT FUN [facility] - 5 5 REGIONAL OUTPATIEN MEDIC T OFFICE 48301 [place] OUTPATIEN 5 5 SURGICAL III SHARON T NEW 30 SPECIALIS MINUTES T OFFICE 67267 [facility] REGIONAL T VISIT 5 MEDIC MINUTES EMERGENCY 65388 ST FERNANDEZIRE SEGOVIA 5 5 REGIONAL CAR DEPARTMEN T VISIT EMERGENCY MODERATE SEVERITY HOSPITAL ST LOVELL - 5 5 REGIONAL OUTPATIEN MEDIC T EMERGENCY 57642 ST NAS KWON 5 5 REGIONAL Y LITTLE DEPARTMEN MEDICAL T VISIT C HIGH/URGE NT SEVERITY EMERGENCY 40918 ST LOVELL 5 5 REGIONAL DEPARTMEN MEDIC T VISIT MODERATE SEVERITY OFFICE 82126 [facility] SAINZ YENY OUTPATIEN 5 5 NAS T VISIT FAMILY 15 MEDICINE MINUTES E OFFICE 80387 [facility] OUTPATIEN 5 5 REGIONAL T VISIT [address] NAS - 5 5 REGIONAL OUTPATIEN MEDIC T [facility]PITAL [facility] NAS - 5 5 REGIONAL OUTPATIEN MEDIC T OFFICE 33246 [place] JACINTO OUTPATIEN 5 5 SIE SIE T VISIT [address]ES [address] NAS OUTPATIEN 5 5 REGIONAL T VISIT 5 MEDIC MINUTES OFFICE 76547 GURJIT NEWMAN DEN OUTPATIEN 5 5 PRIMARY T VISIT CARE 15 CENTER MINUTES EMERGENCY 16722 KYLEIGH ARIZMENDI DEPT 4 4 AMIRA AMIRA VISIT HIGH SEVERITY& THREAT FUN EMERGENCY 34705 FRANCO KER FRANCO KER 4 4 DEPARTMEN T VISIT HIGH/URGE NT SEVERITY OFFICE 59299 GURJIT VACANenita DEN OUTPATIEN 4 4 PRIMARY T VISIT CARE 15 CENTER MINUTES EMERGENCY 81329 ST LINDSAY 4 4 QUYNH COBB DEPARTMEN MED CTR T VISIT HIGH/URGE NT SEVERITY OFFICE 34305 GURJIT PABON JUANA OUTPATIEN 4 4 PRIMARY JAM T VISIT CARE 25 CENTER MINUTES EMERGENCY 95219 KYLEIGH ARIZMENDI 4 4 AMIRA AMIRA DEPARTMEN T VISIT MODERATE SEVERITY EMERGENCY 06019 FRANCO KER FRANCO KER 4 4 DEPARTMEN T VISIT HIGH/URGE NT SEVERITY [facility] [address] [facility] 2 2 [facility] OFFICE 00828 [facility] BAESLEY OUTPATIEN 2 2 JAM JAM T VISIT 15 MINUTES OFFICE 23349 [facility] BEASLEY OUTPATIEN 2 2 JAM JAM T VISIT 15 MINUTES [facility] - 2 2 [facility] OUTPATIEN HOSP T OFFICE 56577 [facility] BEASLEY OUTPATIEN 2 2 JAM JAM T VISIT 15 MINUTES OFFICE 89436 [facility] BEAS[facility] OUTPATIEN 2 2 JAM JAM T VISIT 15 MINUTES OFFICE 27215 [facility] BEASLEY OUTPATIEN 2 2 JAM JAM T VISIT 15 MINUTES OFFICE 02387 [facility] BEAS[facility] OUTPATIEN 2 2 JAM JAM T VISIT 15 MINUTES OFFICE 99371 [facility] BEAS[facility] OUTPATIEN 2 2 JAM JAM T VISIT 15 MINUTES OFFICE 64268 [facility] BE[facility] OUTPATIEN 2 2 JAM JAM T VISIT 15 MINUTES OFFICE 10302 [facility] BE[facility] OUTPATIEN 2 2 JAM FAVIOLA T NEW 45 MINUTES OFFICE 71227 TOÑO ORTIZ OUTPATIEN 2 2 T NEW 20 COMMUNITY MINUTES [facility] EMERGENCY 78640 JM PARRA 2 2 EMERGENCY DEPARTMEN SERVICES T VISIT HIGH/URGE NT SEVERITY EMERGENCY 55167 MJ MOON 2 2 [facility] DE[facility] SERVICES T VISIT HIGH/URGE NT SEVERITY EMERGENCY 76909 [facility] 2 2 W DEPARTMEN REGIONAL T VISIT MEDICAL HIGH/URGE NT SEVERITY EMERGENCY 71380 MJ MOON DEPT 2 2 [facility] VISIT SERVICES HIGH SEVERITY& [facility]RE[facility] - 2 2 W OUTPATIEN REGIONAL T MEDICAL EMERGENCY 60770 MJ MOON 1 1 [facility] DEPART[facility] SERVICES T VISIT HIGH/URGE NT SEVERITY EMERGENCY 56450 MJ MOON 0 0 [facility] DEPART[facility] SERVICES T VISIT HIGH/URGE NT SEVERITY OFFICE 56190 ATTILA EPPSMAN OUTPATIEN 0 0 FAMILY RIT T VISIT CHIROPRAC 10 TI MINUTES OFFICE 67691 KOO KOO OUTPATIEN 0 0 AIYANA AIYANA T VISIT 10 MINUTES OFFICE 92656 GURJIT PABON SHOWER, OUTPATIEN 0 0 PRIMARY PRANEETH L T VISIT CARE 25 [facility] OFFICE 52672 KOO KOO OUTPATIEN 0 0 AIYANA AIYANA T NEW 30 MINUTES OFFICE 09033 GURJIT PABON JENNY, OUTPATIEN 0 0 PRIMARY LYNNE M T VISIT CARE 10 [facility]PITAL [facility]ANDRO - 0 0 [facility] OUTPATIEN INC T EMERGENCY 67329 ALEXANDRO 0 0 [facility] DEPARTMEN INC T VISIT LOW/MODER SEVERITY EMERGENCY 01899 MJ ARIZMENDI, DEPT 0 0 EMERGENCY CASH S VISIT SERVICES HIGH SEVERITY& ASSOCIATE THREAT S FUNCJ [facility] - 0 0 W INPATIENT [facility] OFFICE 80447 GURJIT BALTAZAR, OUTPATIEN 0 0 PRIMARY PRANEETH L T VISIT CARE 15 CENTERINC MINUTES OFFICE 05909 SAMY ROLLINS OUTPATIEN 0 0 POINT EDDARIUS C T VISIT FAMILY 15 CARE, MINUTES INC. [facility] - 0 0 [facility] OFFICE 24822 AJAY LEW 0 0 PRIMARY CARRIE T VISIT CARE 15 CENTERINC MINUTES [facility] - 0 0 [facility] OFFICE 99385 GURJIT BALTAZAR, OUTPATIEN 0 0 PRIMARY PRANEETH L T VISIT CARE 15 CENTERINC MINUTES OFFICE 96535 GURJIT LUJAN OUTPATIEN 0 0 PRIMARY CARRIE T VISIT CARE 15 CENTERINC MINUTES OFFICE 18170 GURJIT REDDY OUTPATIEN 0 0 PRIMARY AZRA T VISIT CARE 15 CENTERINC MINUTES OFFICE 60444 GURJIT LUONG OUTPATIEN 0 0 PRIMARY ROMELIA P T VISIT CARE 15 CENTERINC MINUTES OFFICE 95262 AJAY LEW 9 9 PRIMARY CARRIE T VISIT CARE 15 CENTERINC MINUTES OFFICE 34642 AJAY LEW 9 9 PRIMARY CARRIE T VISIT CARE 25 CENTERINC MINUTES OFFICE 20242 AJAY HOWE 9 9 FAMILY PAULINE R T VISIT CHIROPRAC 10 TIC MINUTES
--- OUTSIDE RECORDS SUMMARY | 2017-07-30 06:36 | External Medical Summary Rpt | CCD ---
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 INE PER 15 MG THERAPEUT 73758 STAR GRAVES IC 4 W W PROPHYLAC REGIONAL REGIONAL TIC/DX MEDICAL MEDICAL INJECTION SUBQ/IM VAGINAL 11-06-201 85699 [facility] DELIVERY 2 JAM JAM ONLY W/POSTPAR CHERI CARE NEURAXIAL 97797 [facility] MELIO GREGORIA LABOR 2 ANESTHESI ANALG/ANE A PSC S PLND VAGINAL DELIVERY 65740 [facility] BIOPHYSIC 2 JAM JAM AL PROFILE NON-STRES S TESTING OTHER 7359 [facility] MANUALLY 2 [facility] DELIVERY OTHER 7309 [facility] ARTIFICIA 2 [facility] 00201 [facility] BIOPHYSIC 2 JAM JAM AL PROFILE NON-STRES S TESTING 82178 [facility] NONSTRESS 2 [facility] TEST HOSP HOSP 76476 [facility] NONSTRESS 2 LABORIST LABORIST TEST SERVICE SERVICE 61659 [facility] NONSTRESS 2 JAM JAM TEST 05042 [facility] NONSTRESS 2 JAM JAM TEST CYTP C/V 86465 ASSOCIATE BELLETO AUTO THIN [address] LYR PATHOLOGI PREPJ SCR STS PLC MNL RESCR PHYS IADNA 47469 ASSOCIATE BELLETO PAPILLOMA [address] VIRUS PATHOLOGI HUMAN STS PLC AMPLIFIED PROBE TQ URNLS DIP 27465 PATH PATH 2 GROUP GROUP STICK/TAB LABS [facility] LET REAGENT AUTO MICROSCOP Y US PREG 72666 [facility] UTERUS 2 JAM JAM AFTER 1ST TRIMEST GESTATION IADNA 59197 ASSOCIATE BELLETO NEISSERIA [address] GONORRHOE STS PLC AE AMPLIFIED PROBE TQ IADNA 28514 ASSOCIATE VIPINNINGTO CHLAMYDIA [address]OLOG[address] TRACHOMAT STS PLC IS AMPLIFIED PROBE TQ CULTURE 17986 [address] PATH BACTERIAL 2 GROUP GROUP LABS ACTIVE Network QUANTTATI VE COLONY COUNT URINE IADNA 19369 TOÑO ZIMMERMAN ANGEL CHLAMYDIA 2 COMMUNITY TRACHOMAT HEALTH C IS AMPLIFIED PROBE TQ URINE 68517 TOÑO ZIMMERMAN ANGEL 2 TEST [facility] VISUAL HEALTH C COLOR CMPRSN METHS IADNA 05980 TOÑO ZIMMERMAN ANGEL NEISSERIA 2 COMMUNITY GONORRHOE HEALTH C AE AMPLIFIED PROBE TQ GLUC BLD 06867 TOÑO ZIMMERMAN ANGEL GLUC MNTR 2 DEV COMMUNITY CLEARED HEALTH C FDA SPEC HOME USE CUL BACT 40888 STAR MOWVIE XCPT 2 W W URINE REGIONAL REGIONAL BLOOD/STO MEDICAL MEDICAL OL AEROBIC ISOL SMR PRIM 67381 MEADOWVIE MEADOWVIE SRC 2 W W GRAM/GIEM REGIONAL REGIONAL SA STAIN MEDICAL MEDICAL BCT FUNGI/EFRAIN L US PREG 56689 MEADOWVIE MEADOWVIE UTERUS 2 W W REAL TIME REGIONAL REGIONAL W/IMAGE MEDICAL MEDICAL DCMTN TRANSVAG SMR PRIM 95190 MEADOWVIE MEADOWVIE SRC WET 2 W W [facility] NFCT AGT MEDICAL MEDICAL IADNA 44443 CHELYWVALORIE MEADOWVIE CHLAMYDIA 2 W W [facility] TRACHOMAT MEDICAL MEDICAL IS AMPLIFIED PROBE TQ CULTURE 09643 CHELYWVALORIE LATISHA BACTERIAL 2 W [facility] QUANTTATI MEDICAL VE COLONY COUNT URINE COLLECTIO 20857 MEAWVALORIE MOWVIE N VENOUS 2 W W BLOOD [facility] VENIPUNCT MEDICAL MEDICAL URE GONADOTRO 41113 MEADOWVIE MEADOWVIE PIN 2 W W CHORIONIC [facility] MEDICAL MEDICAL QUANTITAT LLOYD URNLS DIP 77945 MEAWVALORIE MEADOWVIE 2 W W STICK/TAB REGIONAL REGIONAL LET MEDICAL MEDICAL REAGENT AUTO MICROSCOP Y BLOOD 06066 MEADOWVIE MEADOWVIE COUNT 2 W W COMPLETE REGIONAL REGIONAL AUTO&AUTO MEDICAL MEDICAL DIFRNTL WBC INCISION 79943 MJ MOON & 0 EMERGENCY CHR DRAINAGE SERVICES ABSCESS SIMPLE/SI NGLE APPL 83565 ATTILA RUBIO MODALITY 0 FAMILY RIT 1/> AREAS CHIROPRAC TI ULTRAVIOL ET MANUAL 26396 SCIENCE HILLSUNITA RUBIO THERAPY 0 FAMILY RIT TQS 1/> CHIROPRAC REGIONS TI EACH 15 MINUTES CHIROPRAC 32097 ATTILA RUBIO TIC 0 FAMILY RIT MANIPULAT CHIROPRAC LLOYD TX TI SPINAL 3-4 REGIONS CHIROPRAC 79082 ATTILA RUBIO TIC 0 FAMILY RIT MANIPLTV CHIROPRAC TX TI EXTRASPIN AL 1/> REGION WALKING L4386 GIOVANY Mcbride BOOT 0 KOO KOO NON-PNEUM DPM DPM ATIC PREFAB CUSTOM FIT PARTIAL 48480 KOO KOO EXCISION 0 AIYANA AIYANA BONE TALUS/KENDRA CANEUS CORRJ 57530 KOO KOO HALLUX 0 AIYANA AIYANA VALGUS W/SESMDC W/DIST METAR OSTEOT ANES OPEN 87616 INDEPENDE YASMINE DAM PROC 0 NT BONES ANESTHESI LOWER OLOGIST LEG/ANKLE /FOOT NOS RADEX 57390 RADIOLOGY LEIF FOOT 0 TUS COMPLETE ASSOCIATE MINIMUM 3 S PSC VIEWS URINE 25573 [facility]DRO [facility] TEST INC [place] [address] [facility] HEAD/BRAI 0 [facility] N [place] [address] [facility] INFUSION 0 [facility] THERAPY/P INC INC ROPHYLAXI S /DX 1ST TO 1 HR URNLS DIP 94845 ALEXANDRO MC 0 [facility] STICK/TAB INC INC LET REAGENT AUTO MICROSCOP Y 3D 27839 ALEXANDRO MC RENDERING 0 [facility] W/INTERP INC INC & POSTPROCE SS [facility] 12327 [facility], DISCHARGE 0 PRIMARY PRANEETH L DAY CARE MANAGEMEN CENTERINC T 30 MIN/< SBSQ 96589 [facility], HOSPITAL 0 PRIMARY PRANEETH L CARE/DAY CARE 15 CENTERINC MINUTES NEURAXIAL 35229 [facility] LABOR 0 LTH , MARI ANALG/ANE ANESTHESI S PLND A PSC VAGINAL DELIVERY VAGINAL 59362 [facility], DELIVERY 0 PRIMARY PRANEETH L ONLY CARE CENTERINC 20872 [facility] SH[facility], NONSTRESS 0 PRIMARY PRANEETH L TEST CARE CENTERINC URNLS DIP 75350 GURJIT CO SHOWER, 0 PRIMARY PRANEETH L STICK/TAB CARE LET RGNT CENTERINC NON-AUTO W/O MICRSCP OTHER 7359 STAR GRAVES MANUALLY [address] [facility] CENTER REPAIR OF 7569 STAR GRAVES OTHER 0 W W [facility] OBSTETRIC [facility] CENTER LACERATIO N 81598 GURJIT PABON CAROL, NONSTRESS 0 PRIMARY SUGEY R TEST CARE CENTERINC SMR PRIM 03448 [facility], SRC WET 0 [facility] NFCT AGT CARE, INC. CUL 93438 STAR GRAVES PRSMPTV 0 W W [facility] CENTER W/COLONY ESTIMJ URNLS DIP 14323 GURJIT PABON YOUNG, 0 PRIMARY CARRIE STICK/TAB CARE LET RGNT CENTERINC NON-AUTO W/O MICRSCP CHIROPRAC 18245 ATTILA RUBIO, TIC 0 FAMILY PAULINE R MANIPLTV CHIROPRAC TX TIC EXTRASPIN AL 1/> REGION MANUAL 62096 ATTILA RUBIO, THERAPY 0 FAMILY PAULINE R TQS 1/> CHIROPRAC REGIONS TIC EACH 15 MINUTES CHIROPRAC 06370 ATTILA RUBIO, DREA 0 FAMILY PAULINE R MANIPULAT CHIROPRAC LLOYD TX TIC SPINAL 3-4 REGIONS THERAPEUT 87206 ATTILA RUBIO IC PX 1/> 0 FAMILY PAULINE R AREAS CHIROPRAC EACH 15 TIC MIN EXERCISES APPL 73393 ATTILA RUBIO, MODALITY 0 FAMILY PAULINE R 1/> AREAS CHIROPRAC TIC ULTRAVIOL ET RADEX 06907 STAR DOBSONRITIKAVALORIE ELBOW 2 0 W W [facility] 94859 GURJIT PABON SHOWER, NONSTRESS 0 PRIMARY PRANEETH L TEST CARE CENTERINC INSJ 08588 GURJIT CO SHOWER, NON-NDWEL 0 PRIMARY PRANEETH L LG CARE BLADDER CENTERINC CATHETER CULTURE 13281 LABORATOR LABORATOR BACTERIAL 0 Y & Y & BIODIAGNO BIODIAGNO QUANTTATI STICS STICS VE COLONY COUNT URINE URNLS DIP 98731 GURJIT PABON SHOWER, 0 PRIMARY PRANEETH L STICK/TAB CARE LET RGNT CENTERINC NON-AUTO W/O MICRSCP URNLS DIP 59787 LABORATOR LABORATOR 0 Y & Y & STICK/TAB BIODIAGNO BIODIAGNO LET RGNT STICS STICS AUTO W/O MICROSCOP Y URNLS DIP 81695 GURJIT PABON YOUNG, 0 PRIMARY CARRIE STICK/TAB CARE LET RGNT CENTERINC NON-AUTO W/[place] [address] FLORENCIA DON, RADIAL 0 K. K. HEAD/NECK CALLIE LEDESMA FX W/O MANIPULAT [place]ON US PREG 63867 GURJIT PABON MEESE, UTERUS 0 PRIMARY ROMELIA P W/DETAIL CARE CENTERINC CEE 1ST GESTATION IADNA 26521 LABORATOR LABORATOR GARDNEREL 0 Y & Y & LA BIODIAGNO BIODIAGNO VAGINALIS STICS STICS DIRECT PROBE TQ IADNA 49426 LABORATOR LABORATOR TRICHOMON 0 Y & Y & BIODIAGNO BIODIAGNO VAGINALIS STICS STICS DIRECT PROBE TQ IADNA 30755 LABORATOR LABORATOR CHLAMYDIA 0 Y & Y & BIODIAGNO BIODIAGNO TRACHOMAT STICS STICS IS AMPLIFIED PROBE TQ IADNA 56570 LABORATOR LABORATOR NEISSERIA 0 Y & Y & BIODIAGNO BIODIAGNO GONORRHOE STICS STICS AE AMPLIFIED PROBE TQ CHIROPRAC 78525 DREA HOWE 0 FAMILY PAULINE R MANIPULAT CHIROPRAC LLOYD TX TIC SPINAL 3-4 REGIONS MANUAL 64865 YISEL HOWE 0 FAMILY PAULINE R TQS 1/> CHIROPRAC REGIONS TIC EACH 15 MINUTES CHIROPRAC 14477 DREA HOWE 0 FAMILY PAULINE R MANIPLTV CHIROPRAC TX TIC EXTRASPIN AL 1/> REGION APPL 51943 QUEENIE HOWE 0 FAMILY PAULINE R 1/> AREAS CHIROPRAC TRACTION TIC MECHANICA L URNLS DIP 49743 GURJIT LUJAN, 9 PRIMARY CARRIE STICK/TAB CARE LET RGNT CENTER[place] [address] GURJIT LUJAN, 9 PRIMARY CARRIE UTERUS 14 CARE WK CENTERINC TRANSABDL GESTAT COLLECTIO 95640 GURJIT LUJAN, N VENOUS 9 PRIMARY CARRIE BLOOD CARE VENIPUNCT CENTERINC URE MOLEC 96786 QUEST COSME QUEST COSME ISOL/XTRJ 9 RADHA [facility] ACID EA TYPE URINE 06505 GURJIT LUJAN, 9 PRIMARY CARRIE TEST CARE VISUAL CENTERINC COLOR CMPRSN METHS MOLECULAR 06692 QUEST COSME QUEST COSME DX AMP 9 RADHA [place] TARGET MULTIPLEX [facility] 1ST 2 SEQ MOLECULAR 45670 QUEST COSME QUEST COSME 9 RADHA RADHA DIAGNOSTI [facility] INTERPRET ATION & REPORT MUTATION 14997 QUEST COSME QUEST COSME ID 9 RADHA GARCIA ENZYMATIC [facility] LIG/PRIME R XTN 1 SGM EA MOLECULAR 68504 QUEST COSME QUEST COSME DX AMP 9 RADHA RADHA TARGET [facility] EA ADDL SEQ MOLEC 57730 QUEST COSME QUEST COSME SEP&ID HI 9 RADHA RADHA RESOLU TQ [facility] NUCLEIC ACID PREP APPL 09633 QUEENIE HOWE 9 FAMILY PAULINE R 1/> AREAS CHIROPRAC TRACTION TIC MECHANICA L CHIROPRAC 63482 DREA HOWE 9 FAMILY PAULINE R MANIPLTV CHIROPRAC TX TIC EXTRASPIN AL 1/> REGION THERAPEUT 18583 LELA HOWE PX 1/> 9 FAMILY PAULINE R AREAS CHIROPRAC EACH 15 TIC MIN EXERCISES CHIROPRAC 30556 DREA HOWE 9 FAMILY PAULINE R MANIPULAT CHIROPRAC LLOYD TX TIC SPINAL 3-4 REGIONS MANUAL 21078 YISEL HOWE 9 FAMILY PAULINE R TQS 1/> CHIROPRAC REGIONS TIC EACH 15 MINUTES CHIROPRAC 55715 DREA HOWE 9 FAMILY PAULINE R MANIPULAT CHIROPRAC LLOYD TX TIC SPINAL 3-4 REGIONS MANUAL 77950 ATTILA RUBIO, THERAPY 9 FAMILY PAULINE R TQS 1/> CHIROPRAC REGIONS TIC EACH 15 MINUTES THERAPEUT 70189 ATTILA RUBIO IC PX 1/> 9 FAMILY PAULINE R AREAS CHIROPRAC EACH 15 TIC MIN EXERCISES CHIROPRAC 89055 ATTILA DREA RUBIO 9 FAMILY PAULINE R MANIPLTV CHIROPRAC TX TIC EXTRASPIN AL 1/> REGION CHIROPRAC 88198 ATTILA RUBIO, TIC 9 FAMILY PAULINE R MANIPLTV CHIROPRAC TX TIC EXTRASPIN AL 1/> REGION APPL 39553 ATTILA RUBIO, MODALITY 9 FAMILY PAULINE R 1/> AREAS CHIROPRAC TRACTION TIC MECHANICA L SELF-CARE 25603 ATTILA RUBIO, /HOME 9 FAMILY PAULINE R MGMT CHIROPRAC TRAINING TIC EACH 15 MINUTES STRAPPING 43316 ATTILA JOANNE LOW BACK 9 FAMILY PAULINE R CHIROPRAC TIC MANUAL 70571 AVIFIDEL RUBIO THERAPY 9 FAMILY PAULINE R TQS 1/> CHIROPRAC REGIONS TIC EACH 15 MINUTES CHIROPRAC 00502 ATTILA DREA RUBIO 9 FAMILY PAULINE R MANIPULAT CHIROPRAC LLOYD TX TIC SPINAL 3-4 REGIONS Encounters Encounter Start End Date Code Location Performer Type Date OFFICE 05812 GURJIT MOSS 7 7 FAMILY T VISIT HEALTH 15 CTR MINUTES EMERGENCY [address] [facility] 7 7 REGIONAL DEPARTMEN T VISIT EMERGENCY HIGH/URGE NT SEVERITY OFFICE 42647 [address] GLEN MOSS 7 7 SURGICAL T VISIT SPECIALIS 25 [address] OFF[address] [facility] 7 7 REGIONAL T VISIT MEDICAL [address] [facility] 7 7 REGIONAL OUTPATIEN MEDICAL T EMERGENCY 78018 [facility] 7 7 REGIONAL DEPARTMEN T VISIT EMERGENCY HIGH/URGE NT SEVERITY OFFICE 64935 [facility] 7 7 NAS T VISIT FAMILY 15 MEDICINE [address] E [facility] [facility] - 7 7 REGIONAL OUTPATIEN MEDICAL T OFFICE 92757 [facility] T VISIT MEDICAL [address] [facility] OUT[facility] 6 6 REGIONAL T VISIT [address] [facility] - 6 6 REGIONAL OUTPATIEN MEDICAL T OFFICE 54324 STRubin JANG OUTPATIEN 6 6 NAS T VISIT FAMILY 15 MEDICINE MINUTES E EMERGENCY 89953 ST [facility] 6 [facility] V[facility]/M [facility] 6 6 REGIONAL OUTPATIEN MEDIC T OFFICE 30273 [facility] KRI T VISIT FAMILY 15 MEDICINE MINUTES E OFFICE 56615 [facility] REGIONAL T VISIT 5 MEDIC MINUTES OFFICE 77943 ALLERGY, LIVAS [facility] ASTHMA & T NEW 45 IMMUNOLOG MINUTES Y OFFICE 88351 [place] [facility]NA [facility]IA [facility] 6 MEDICAL T VISIT SERV 15 FOUNDATIO MINUTES N OFFICE 17[address] [facility] 6 6 NAS T VISIT FAMILY 15 CARE MINUTES CLINI OFFICE 26713 [facility] REGIONAL T VISIT [address] [facility] 20365 [facility] 6 6 REGIONAL T VISIT MEDIC [address] NAS - 6 6 REGIONAL OUTPATIEN MEDIC T [facility] - 6 6 REGIONAL OUTPATIEN MEDIC T OFFICE 79213 [facility] 6 6 REGIONAL T VISIT 5 MEDIC [address] OFF[address] [facility] 6 6 NAS REGISTRATION REPRESENTATIVE T VISIT FAMILY 15 CARE MINUTES [facility]INI [facility] - 6 6 REGIONAL OUTPATIEN MEDIC T OFFICE 03583 [facility] OUTPAT[facility] 6 6 REGIONAL T VISIT MEDIC [address] [facility] 6 6 REGIONAL T VISIT MEDIC [address] [facility] - 6 6 REGIONAL OUTPATIEN MEDIC T OFFICE 06902 [facility] 6 6 NAS T VISIT FAMILY 15 CARE MINUTES CLINI OFFICE 73988 [facility] OUT[facility] 6 6 REGIONAL T VISIT [address] [facility] - 6 6 REGIONAL OUTPATIEN MEDIC T OFFICE 26166 [facility] 6 6 REGIONAL T VISIT MEDIC [address] [facility] - 6 6 REGIONAL OUTPATIEN MEDIC T OFFICE 09039 [facility] 6 6 FAMILY T VISIT MEDICINE- 15 OW MINUTES OFFICE 35080 [facility] OUTPATIEN 6 6 REGIONAL T VISIT MEDIC [address] [facility] - 6 6 REGIONAL OUTPATIEN MEDIC T [facility]PITAL [facility] - 6 6 REGIONAL OUTPATIEN MEDIC T OFFICE [address] [facility] 6 SURGICAL T VISIT SPECIALIS 15 T MIN[address] OFFICE [address]12 [facility] 6 6 REGIONAL T VISIT MEDIC [address] [facility] - 6 6 REGIONAL OUTPATIEN MEDIC T OFFICE 15247 [facility] OUT[facility] 6 6 REGIONAL T VISIT [address] [facility] - 6 6 REGIONAL OUTPATIEN MEDIC T OFFICE 31983 [facility] BERMU[facility] 6 6 NAS T VISIT FAMILY 15 CARE MINUTES CLINI OFFICE 45424 [facility] OUT[facility] 6 6 REGIONAL T VISIT [address] [facility] - 6 6 REGIONAL OUTPATIEN MEDIC T [facility]PITAL [facility] - 6 6 REGIONAL OUTPATIEN MEDIC T EMERGENCY 90689 [facility] SOUZA 6 6 REGIONAL LIS DEPARTMEN T VISIT EMERGENCY MODERATE SEVERITY OFFICE 70731 ST [facility] 6 6 REGIONAL T VISIT [address] [facility] - 6 6 REGIONAL OUTPATIEN MEDIC T OFFICE 83031 [facility] HANKS [facility] 6 6 NAS T VISIT FAMILY 15 CARE [address]IN[facility] - 6 6 REGIONAL OUTPATIEN MEDIC T OFFICE 67153 [facility] 6 6 NAS T VISIT FAMILY 15 CARE MINUTES CLINI OFFICE [facility]226 [facility] 6 6 REGIONAL T VISIT MEDIC [address] [facility] - 6 6 REGIONAL OUTPATIEN MEDIC T OFFICE 69353 [facility] OUT[facility] 6 6 REGIONAL T VISIT MEDIC 10 MINUTES OFFICE 84474 LUNA LUNA OUTPATIEN 6 6 KATARINA KATARINA T VISIT [address] [facility] - 6 6 REGIONAL OUTPATIEN MEDIC T EMERGENCY 23623 [facility] 6 6 REGIONAL DEPARTMEN MEDIC T VISIT LOW/MODER SEVERITY [facility]OSPITAL ST [facility] - 6 6 REGIONAL OUTPATIEN MEDIC T EMERGENCY 76469 LIB[facility] EPPSSTEIN 6 6 LIS LIS DEPARTMEN T VISIT MODERATE SEVERITY OFFICE 48536 [facility] BERMU[facility] OUTPAT[facility] 6 6 NAS T VISIT FAMILY 15 CARE MINUTES CLINI OFFICE 70631 [facility] OUTPAT[facility] 6 6 REGIONAL T VISIT MEDIC [address] [facility] - 6 6 REGIONAL OUTPATIEN MEDIC T OFFICE 80314 [facility] OUTPAT[facility] 6 6 REGIONAL T VISIT [address] [facility] - 6 6 REGIONAL OUTPATIEN MEDIC T [facility] - 6 6 REGIONAL OUTPATIEN MEDIC T OFFICE 89413 [facility] 6 6 REGIONAL T VISIT MEDIC [address] [facility] [address] [facility] 6 6 NAS REGISTRATION REPRESENTATIVE T VISIT FAMILY 15 CARE MINUTES CLINI OFFICE 73896 [facility] OUTPATIEN 6 6 REGIONAL T VISIT 5 MEDIC MINUTES OFFICE 69297 [facility] OUTPAT[facility]EN 6 6 REGIONAL T VISIT 5 MEDIC MINUTES OFFICE 7[address] [facility] NAOMY OUT[facility]IEN 6 6 NAS T VISIT FAMILY 10 MEDICINE [address] E [facility] [facility] - 6 6 REGIONAL OUTPATIEN MEDIC T EMERGENCY 04023 [facility] PACE LUIS MANUEL 6 6 REGIONAL DEPARTMEN T VISIT EMERGENCY HIGH/URGE NT SEVERITY [facility]OSPITAL [facility] - 6 6 REGIONAL OUTPATIEN MEDIC T [facility]PITAL [facility] - 6 6 REGIONAL OUTPATIEN MEDIC T OFFICE 25063 STRubin TAYLOR OUTPATIEN 6 6 NAS REGISTRATION REPRESENTATIVE T VISIT FAMILY 15 CARE MINUTES [facility]INI [facility] - 6 6 REGIONAL OUTPATIEN MEDIC T OFFICE 22143 [facility] OUTPAT[facility]EN 6 6 REGIONAL T VISIT [address] [facility] - 6 6 REGIONAL OUTPATIEN MEDIC T EMERGENCY 44367 [facility] FAY OSMIN 6 6 REGIONAL DEPARTMEN T VISIT EMERGENCY [facility] 21568 [facility] OUT[facility] 6 6 REGIONAL T VISIT 5 MEDIC MINUTES OFFICE [address] [facility] [place] [facility] 6 6 NAS SIE T VISIT FAMILY 15 MEDICINE MINUTES E OFFICE 56161 [facility] OUTPAT[facility]EN 6 6 REGIONAL T VISIT 5 MEDIC MINUTES OFFICE [address] [facility] 6 6 NAS FRA T VISIT FAMILY 15 CARE MIN[address]ES [facility]IN[facility] - 6 6 REGIONAL OUTPATIEN MEDIC T OFFICE 37577 [facility] 5 5 NAS FRA T VISIT FAMILY 25 CARE MINUTES CLINI OFFICE 74697 [facility] 5 5 NAS T VISIT FAMILY 15 CARE [facility] [facility]IN[facility] - 5 5 REGIONAL OUTPATIEN MEDIC T OFFICE 42904 [facility] OUTPAT[facility] 5 5 REGIONAL T VISIT 5 MEDIC MINUTES OFFICE 54796 [facility] OUTPAT[facility] 5 5 REGIONAL T VISIT [address] [facility] - 5 5 REGIONAL OUTPATIEN MEDIC T [facility] - 5 5 REGIONAL OUTPATIEN MEDIC T OFFICE [address] [facility] [place] OUTPATIEN 5 5 NAS SIE T VISIT FAMILY 15 MEDICINE MINUTES E OFFICE 57370 [facility] OUTPATIEN 5 5 REGIONAL T VISIT 5 MEDIC MINUTES EMERGENCY 39439 [facility] BEN JUS 5 5 REGIONAL DEPARTMEN T VISIT EMERGENCY HIGH/URGE NT SEVERITY [facility]OSPITAL [facility] - 5 5 REGIONAL OUTPATIEN MEDIC T OFFICE 21239 [place] [facility] OUTPATIEN 5 5 SURGICAL III SHARON T VISIT SPECIALIS 15 T MINUTES OFFICE 76173 [facility] OUTPATIEN 5 5 REGIONAL T VISIT MEDIC [address] [facility] - 5 5 REGIONAL OUTPATIEN MEDIC T OFFICE 96991 [facility] OUTPATIEN 5 5 REGIONAL T VISIT MEDIC [address] [facility] - 5 5 REGIONAL OUTPATIEN MEDIC T OFFICE 60137 [place] [facility] OUTPATIEN 5 5 SURGICAL III SHARON T VISIT SPECIALIS 25 T MINUTES OFFICE 85867 STRubin TAYLOR OUTPATIEN 5 5 NAS REGISTRATION REPRESENTATIVE T VISIT FAMILY 15 CARE MINUTES CLINI [facility] - 5 5 REGIONAL OUTPATIEN MEDIC T OFFICE 96797 [facility] OUTPATIEN 5 5 REGIONAL T VISIT 5 MEDIC MINUTES OFFICE 06733 [facility] OUTPATIEN 5 5 REGIONAL T VISIT MEDIC [address] [facility] - 5 5 REGIONAL OUTPATIEN MEDIC T OFFICE 13780 [place] [facility] OUTPATIEN 5 5 SURGICAL III SHARON T VISIT SPECIALIS 25 T MINUTES EMERGENCY 54634 [facility] OVERALL 5 5 REGIONAL PHI DEPARTMEN T VISIT EMERGENCY HIGH/URGE NT SEVERITY EMERGENCY 77240 ST [facility] SEGOVIA 5 5 REGIONAL CAR DEPARTMEN T VISIT EMERGENCY HIGH/URGE NT SEVERITY EMERGENCY 62082 ST [facility] SEGOVIA DEPT 5 5 REGIONAL CAR VISIT HIGH EMERGENCY SEVERITY& THREAT FUN [facility] - 5 5 REGIONAL OUTPATIEN MEDIC T OFFICE 65816 [place] OUTPATIEN 5 5 SURGICAL III SHARON T NEW 30 SPECIALIS MINUTES T OFFICE 38907 [facility] 5 5 REGIONAL T VISIT 5 MEDIC MINUTES EMERGENCY 67694 ST FERNANDEZIRE SEGOVIA 5 5 REGIONAL CAR DEPARTMEN T VISIT EMERGENCY MODERATE SEVERITY [facility]OSPITAL [facility] - 5 5 REGIONAL OUTPATIEN MEDIC T EMERGENCY 76743 ST [facility] KWON 5 5 REGIONAL Y LITTLE DEPARTMEN MEDICAL T VISIT C HIGH/URGE NT SEVERITY EMERGENCY 86017 ST [facility] 5 5 REGIONAL DEPARTMEN MEDIC T VISIT MODERATE SEVERITY OFFICE 06298 [facility] YENY OUTPATIEN 5 5 NAS T VISIT FAMILY 15 MEDICINE MINUTES E OFFICE 73138 [facility] OUTPATIEN 5 5 REGIONAL T VISIT [address] [facility] - 5 5 REGIONAL OUTPATIEN MEDIC T [facility] - 5 5 REGIONAL OUTPATIEN MEDIC T OFFICE 93285 [place] OUTPATIEN 5 5 SIE SIE T VISIT [address] [facility] OUTPATIEN 5 5 REGIONAL T VISIT 5 MEDIC MINUTES OFFICE 70785 GURJIT NEWMAN DEN OUTPATIEN 5 5 PRIMARY T VISIT CARE 15 CENTER MINUTES EMERGENCY 76471 KYLEIGH ARIZMENDI DEPT 4 4 AMIRA AMIRA VISIT HIGH SEVERITY& THREAT FUN EMERGENCY 83317 FRANCO KER FRANCO KER 4 4 DEPARTMEN T VISIT HIGH/URGE NT SEVERITY OFFICE 63903 GURJIT VACANenita DEN OUTPATIEN 4 4 PRIMARY T VISIT CARE 15 CENTER MINUTES EMERGENCY 91799 [facility] 4 4 QUYNH COBB DEPARTMEN MED CTR T VISIT HIGH/URGE NT SEVERITY OFFICE 91728 GURJIT PABON JUANA OUTPATIEN 4 4 PRIMARY JAM T VISIT CARE 25 CENTER MINUTES EMERGENCY 23180 KYLEIGH ARIZMENDI 4 4 AMIRA AMIRA DEPARTMEN T VISIT MODERATE SEVERITY EMERGENCY 54834 FRANCO KER FRANCO KER 4 4 DEPARTMEN T VISIT HIGH/URGE NT SEVERITY [facility] OFFICE 46586 BEASLEY BEASLEY OUTPATIEN 2 2 JAM JAM T VISIT 15 MINUTES OFFICE 69918 BEASLEY BEASLEY OUTPATIEN 2 2 JAM JAM T VISIT 15 MINUTES [facility] - 2 2 [facility] OUT[facility] T OFFICE 98863 BEASLEY BEASLEY OUTPATIEN 2 2 JAM JAM T VISIT 15 MINUTES OFFICE 90892 [facility] OUTPATIEN 2 2 JAM JAM T VISIT 15 MINUTES OFFICE 76834 [facility] OUTPATIEN 2 2 JAM JAM T VISIT 15 MINUTES OFFICE 84672 [facility] OUTPATIEN 2 2 JAM JAM T VISIT 15 MINUTES OFFICE 87245 [facility] OUTPATIEN 2 2 JAM JAM T VISIT 15 MINUTES OFFICE 56068 [facility] OUTPATIEN 2 2 JAM JAM T VISIT 15 MINUTES OFFICE 94680 [facility] OUTPATIEN 2 2 JAM FAVIOLA T NEW 45 MINUTES OFFICE 49892 TOÑO ORTIZ OUTPATIEN 2 2 T NEW 20 COMMUNITY MINUTES [facility] EMERGENCY 73223 MJ PARRA 2 2 EMERGENCY DEPARTMEN SERVICES T VISIT HIGH/URGE NT SEVERITY EMERGENCY 59099 MJ MOON 2 2 EMERGENCY [facility] DEPARTMEN SERVICES T VISIT HIGH/URGE NT SEVERITY EMERGENCY 10804 [facility] 2 2 W DEPARTMEN REGIONAL T VISIT MEDICAL HIGH/URGE NT SEVERITY EMERGENCY 79008 MJ MOON DEPT 2 2 EMERGENCY [facility] VISIT SERVICES HIGH SEVERITY& THREAT [facility] - 2 2 W OUTPATIEN REGIONAL T MEDICAL EMERGENCY 89662 MJ MOON 1 1 EMERGENCY [facility] DEPARTMEN SERVICES T VISIT HIGH/URGE NT SEVERITY EMERGENCY 27710 MJ MOON 0 0 EMERGENCY [facility] DEPARTMEN SERVICES T VISIT HIGH/URGE NT SEVERITY OFFICE 44703 ATTILA EPPSMAN OUTPATIEN 0 0 FAMILY RIT T VISIT CHIROPRAC 10 TI MINUTES OFFICE 70630 KOO KOO OUTPATIEN 0 0 AIYANA AIYANA T VISIT 10 MINUTES OFFICE 84249 GURJIT PABON SHOWER, OUTPATIEN 0 0 PRIMARY PRANEETH L T VISIT CARE 25 [facility] OFFICE 26275 KOO KOO OUTPATIEN 0 0 AIYANA AIYANA T NEW 30 MINUTES OFFICE 35456 GURJIT PABON JENNY, OUTPATIEN 0 0 PRIMARY LYNNE M T VISIT CARE 10 [facility]DRO - 0 0 [facility] OUT[facility] T EMERGENCY 76389 [facility]DRO 0 0 [facility] DEPARTMEN INC T VISIT LOW/MODER SEVERITY EMERGENCY 11058 MJ ARIZMENDI, DEPT 0 0 EMERGENCY CASH S VISIT SERVICES HIGH SEVERITY& ASSOCIATE THREAT S FUNCJ [facility] MEADOW[facility]IE - 0 0 W INPATIENT [facility] OFFICE 99094 GURJIT BALTAZAR, OUTPATIEN 0 0 PRIMARY PRANEETH L T VISIT CARE 15 CENTERINC MINUTES OFFICE 96792 SAMY ROLLINS OUTPATIEN 0 0 POINT EDDARIUS C T VISIT FAMILY 15 CARE, MINUTES INC. [facility] MEADOWVIE - 0 0 W [facility] OFFICE 12641 AJAY LEW 0 0 PRIMARY CARRIE T VISIT CARE 15 CENTERINC MINUTES [facility] MEAWVIE - 0 0 W [facility] OFFICE 56884 GURJIT BALTAZAR, OUTPATIEN 0 0 PRIMARY PRANEETH L T VISIT CARE 15 CENTERINC MINUTES OFFICE 12129 GURJIT LUJAN OUTPATIEN 0 0 PRIMARY CARRIE T VISIT CARE 15 CENTERINC MINUTES OFFICE 24383 GURJIT REDDY OUTPATIEN 0 0 PRIMARY AZRA T VISIT CARE 15 CENTERINC MINUTES OFFICE 79515 GURIJT LUONG OUTPATIEN 0 0 PRIMARY ROMELIA P T VISIT CARE 15 CENTERINC MINUTES OFFICE 45103 AJAY LEW 9 9 PRIMARY CARRIE T VISIT CARE 15 CENTERINC MINUTES OFFICE 77300 AJAY LEW 9 9 PRIMARY CARRIE T VISIT CARE 25 CENTERINC MINUTES OFFICE 42058 AJAY HOWE 9 9 FAMILY PAULINE R T VISIT CHIROPRAC 10 TIC MINUTES
--- OUTSIDE RECORDS SUMMARY | 2017-07-30 06:42 | External Medical Summary Rpt | CCD ---
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 CLEARED FDA SPEC HOME USE BLOOD [address] NAS COUNT 6 REGIONAL REGIONAL HEMOGLOBI MEDIC MEDIC N GLUCOSE [address] NAS POST 6 REGIONAL REGIONAL GLUCOSE MEDIC MEDIC DOSE URNLS DIP [address] NAS 6 REGIONAL REGIONAL STICK/TAB MEDIC MEDIC LET RGNT NON-AUTO W/O MICRSCP URNLS DIP [address] NAS 6 REGIONAL REGIONAL STICK/TAB MEDIC MEDIC LET RGNT AUTO W/O MICROSCOP Y SMR PRIM [address] NAS SRC WET 6 REGIONAL REGIONAL MOUNT MEDIC MEDIC NFCT AGT CULTURE [address] NAS BACTERIAL 6 REGIONAL REGIONAL MEDIC MEDIC QUANTTATI VE COLONY COUNT URINE URNLS DIP [address] NAS 6 REGIONAL REGIONAL STICK/TAB MEDIC MEDIC LET REAGENT AUTO MICROSCOP Y FTL [address] NAS FIBRONECT 6 REGIONAL REGIONAL IN MEDIC MEDIC CERVICOVA [place] [address] NAS INFUSION 6 REGIONAL REGIONAL HYDRATION MEDIC MEDIC INITIAL 31 MIN-1 [address] NAS 6 REGIONAL REGIONAL STICK/TAB MEDIC MEDIC LET RGNT AUTO W/O MICROSCOP Y URNLS DIP [address] NAS 6 REGIONAL REGIONAL STICK/TAB MEDIC MEDIC LET [place] [address] NAS INFUSION 6 REGIONAL REGIONAL HYDRATION MEDIC MEDIC EACH ADDITIONA [place] HOUR [place] PREG [address] NAS UTERUS 6 REGIONAL REGIONAL AFTER 1ST MEDIC MEDIC TRIMEST 1/ GESTATION URNLS DIP [address] NAS 6 REGIONAL REGIONAL STICK/TAB MEDIC MEDIC LET RGNT NON-AUTO W/O MICRSCP US PREG 41150 GURJIT LUIS MANUEL GURJIT LUIS MANUEL UTERUS 6 AFTER 1ST TRIMEST GESTATION URNLS DIP [address] NAS 6 REGIONAL REGIONAL STICK/TAB MEDIC MEDIC LET RGNT NON-AUTO W/O MICRSCP [place] 79101 ST NAS MELCHOR JT LOWER 5 REGIONAL LIZETH EXTREM RADIOLOG W/O CONTRAST MATRL RADIOLOGI 65389 ST NAS KAP[place]OR II C EXAM 5 COMMERCIAL LITIGATION ATTORNEY KNEE RADIOLOG COMPLETE 4/MORE VIEWS RADIOLOGI 74802 ST NASSHANELL RODLER II C 5 COMMERCIAL LITIGATION ATTORNEY EXAMINATI RADIOLOG ON TIBIA & FIBULA [address] NAS MELCHOR ANKLE 5 REGIONAL LIZETH COMPLETE RADIOLOG MINIMUM [address] V[address] NAS MELCHOR FOOT 5 REGIONAL LIZETH COMPLETE RADIOLOG MINIMUM [address] [place] [address] [address] NAS GURJIT LUIS MANUEL ABDOMINAL 5 REGIONAL REAL RADIOLOG TIME W/IMAGE LIMITED RADEX [address] NAS FINGR 5 REGIONAL REGIONAL MINIMUM 2 MEDIC MEDIC VIEWS SPINAL 20135 KYLEIGH KYLEIGH PUNCTURE 4 AMIRA AMIRA LUMBAR DIAGNOSTI C SEDIMENTA 83951 QUEST QUEST TION RATE 4 DIAGNOSTI DIAGNOSTI RBC CS CS AUTOMATED BLOOD 31432 QUEST QUEST COUNT 4 DIAGNOSTI DIAGNOSTI COMPLETE CS CS AUTO&[place] [address] AYANA PIÑA HEAD/BRAI 4 III KASSI III KASSI N W/O CONTRAST MATERIAL HEPATITIS 50442 QUEST QUEST C 4 DIAGNOSTI DIAGNOSTI ANTIBODY CS CS RADEX 91031 GURJIT CO JUANA ANKLE 4 PRIMARY JAM COMPLETE CARE MINIMUM 3 CENTER VIEWS IADNA 05328 QUEST QUEST HEPATITIS 4 DIAGNOSTI DIAGNOSTI C QUANT CS CS & REVERSE TRANSCRIP TION HEPATIC 88227 QUEST QUEST FUNCTION 4 DIAGNOSTI DIAGNOSTI PANEL CS CS RADEX 32942 JAMISONCHAPARROJose MICHELLE ANKLE 4 MEDICAL CODY COMPLETE IMAGING MINIMUM 3 ASS VIEWS RADEX 96025 MEAWVALORIE MOWVALORIE ANKLE 4 W W COMPLETE REGIONAL REGIONAL MINIMUM 3 MEDICAL MEDICAL VIEWS THERAPEUT 46698 MEADOWVIE MEAWVIE IC 4 W W PROPHYLAC REGIONAL REGIONAL TIC/DX MEDICAL MEDICAL INJECTION SUBQ/IM INJECTION J1885 MEARITIKAVIE MEAWVIE 4 W W KETOROLAC REGIONAL REGIONAL MEDICAL MEDICAL TROMETHAM INE PER 15 MG NEURAXIAL 50739 HINDUISM MELIO GREGORIA LABOR 2 ANESTHESI ANALG/ANE A PSC S PLND VAGINAL DELIVERY VAGINAL 92513 [facility] DELIVERY 2 JAM JAM ONLY W/POSTPAR CHERI CARE 13552 [facility] BIOPHYSIC 2 JAM JAM AL PROFILE NON-STRES S TESTING OTHER 7359 [facility] MANUALLY 2 [facility] DELIVERY OTHER 7309 [facility] ARTIFICIA 2 HINDUISM [facility] L [facility] 67975 [facility] BIOPHYSIC 2 JAM JAM AL PROFILE NON-STRES S TESTING 16368 [facility] NONSTRESS 2 HINDUISM [facility]INDUISM TEST HOSP HOSP 54552 [facility]INDUISM HINDUISM NONSTRESS 2 LABORIST LABORIST TEST SERVICE SERVICE 56770 [facility] NONSTRESS 2 JAM JAM TEST 16095 [facility] NONSTRESS 2 JAM JAM TEST IADNA 14996 ASSOCIATE BELLETO PAPILLOMA [address]IRUS PATHOLOGI HUMAN STS PLC AMPLIFIED PROBE TQ IADNA 91341 ASSOCIATE VIPINNINGTO NEISSERIA [address]I GONORRHOE STS PLC AE AMPLIFIED PROBE TQ IADNA 95722 ASSOCIATE VIPINNINGTO CHLAMYDIA [address]OLOG[address] TRACHOMAT STS PLC IS AMPLIFIED PROBE TQ CULTURE 02295 PATH PATH BACTERIAL 2 GROUP GROUP LABS [employer] LABS [employer] QUANTTATI VE COLONY COUNT URINE CYTP C/V 20047 ASSOCIATE BELLETO AUTO THIN [address] LYR PATHOLOGI PREPJ SCR STS PLC MNL RESCR PHYS URNLS DIP 81889 PATH PATH 2 GROUP GROUP STICK/TAB LABS [employer] LABS [employer] LET REAGENT AUTO MICROSCOP Y US PREG 73298 [facility] UTERUS 2 JAM JAM AFTER 1ST TRIMEST GESTATION GLUC BLD 33651 [facility] ZIMMERMAN ANGEL GLUC MNTR 2 DEV COMMUNITY CLEARED HEALTH C FDA SPEC HOME USE IADNA 63199 [facility] ZIMMERMAN ANGEL CHLAMYDIA 2 COMMUNITY TRACHOMAT HEALTH C IS AMPLIFIED PROBE TQ IADNA 97725 [facility] ANGEL NEISSERIA 2 COMMUNITY GONORRHOE HEALTH C AE AMPLIFIED PROBE TQ URINE 25676 [facility] ZIMMERMAN ANGEL 2 TEST COMMUNITY VISUAL HEALTH C COLOR CMPRSN METHS IADNA 00191 MEADOWVIE MEADOWVIE CHLAMYDIA 2 W W [facility] TRACHOMAT MEDICAL MEDICAL IS AMPLIFIED PROBE TQ SMR PRIM 79576 MEADOWVIE MEADOWVIE SRC 2 W W GRAM/GIEM REGIONAL REGIONAL SA STAIN MEDICAL MEDICAL BCT FUNGI/EFRAIN L SMR PRIM 48644 MEADOWVIE MEADOWVIE SRC WET 2 W W [facility] NFCT AGT MEDICAL MEDICAL US PREG 35802 MEADOWVIE MEADOWVIE UTERUS 2 W W REAL TIME REGIONAL REGIONAL W/IMAGE MEDICAL MEDICAL DCMTN TRANSVAG CUL BACT 89781 STAR GRAVES XCPT 2 W W URINE [facility]IONAL [facility] BLOOD/STO MEDICAL MEDICAL OL AEROBIC ISOL CULTURE 94290 STAR LATISHA BACTERIAL 2 W LARRY [facility] QUANTTATI MEDICAL VE COLONY COUNT URINE COLLECTIO 35711 STAR GRAVES N VENOUS 2 W W BLOOD [facility] VENIPUNCT MEDICAL MEDICAL URE BLOOD 07631 STAR GRAVES COUNT 2 W W COMPLETE [facility] AUTO&AUTO MEDICAL MEDICAL DIFRNTL WBC GONADOTRO 52975 STAR GRAVES PIN 2 W W CHORIONIC [facility] MEDICAL MEDICAL QUANTITAT LLOYD URNLS DIP 91565 STAR MOWVALOIRE 2 W W STICK/TAB [facility] MEDICAL REAGENT AUTO MICROSCOP Y INCISION 20820 MJ MOON & 0 EMERGENCY CHR DRAINAGE SERVICES ABSCESS SIMPLE/SI NGLE APPL 77012 BELLE MEAD RUBIO MODALITY 0 FAMILY RIT 1/> AREAS CHIROPRAC TI ULTRAVIOL ET CHIROPRAC 82010 BELLE MEAD RUBIO TIC 0 FAMILY RIT MANIPULAT CHIROPRAC LLOYD TX TI SPINAL 3-4 REGIONS MANUAL 30578 [facility] THERAPY 0 FAMILY RIT TQS 1/> CHIROPRAC REGIONS TI EACH 15 MINUTES CHIROPRAC 15757 BELLE MEAD RUBIO TIC 0 FAMILY RIT MANIPLTV CHIROPRAC TX TI EXTRASPIN AL 1/> REGION WALKING L4386 GIOVANY Mcbride BOOT 0 KOO KOO NON-PNEUM DPM DPM ATIC PREFAB CUSTOM FIT ANES OPEN 74602 INDEPENDE YASMINE DAM PROC 0 NT BONES ANESTHESI LOWER OLOGIST LEG/ANKLE /FOOT NOS PARTIAL 90086 KOO KOO EXCISION 0 AIYANA AIYANA BONE TALUS/KENDRA CANEUS CORRJ 67136 KOO KOO HALLUX 0 AIYANA AIYANA VALGUS W/SESMDC W/DIST METAR OSTEOT RADEX 39919 RADIOLOGY LEIF FOOT 0 TUS COMPLETE ASSOCIATE MINIMUM [address] [place] [address] ANU RODRIGUEZ, HEAD/BRAI 0 MEDICAL DEEPAK P N W/O IMAGING CONTRAST ASSOCIATE MATERIAL S 3D 15489 ANU RODRIGUEZ, RENDERING 0 MEDICAL DEEPAK P W/INTERP IMAGING & ASSOCIATE POSTPROCE S SS SUPERVISI ON URNLS DIP 19323 ALEX[facility]DRO [facility] STICK/TAB INC [place] [address] ALEX[facility]DRO MC INFUSION 0 [facility] THERAPY/P INC INC ROPHYLAXI S /DX 1ST TO 1 HR URINE 24803 ALEXANDRO [facility] 0 [facility] TEST INC INC VISUAL COLOR CMPRSN [facility] [address] [facility] SHOWER, DISCHARGE 0 PRIMARY PRANEETH L DAY CARE MANAGEMEN CENTERINC T 30 MIN/< SBSQ 11843 GURJIT MD SHOWER, HOSPITAL 0 PRIMARY PRANEETH L CARE/DAY CARE 15 CENTERINC MINUTES VAGINAL 64980 [facility] SHOWER, DELIVERY 0 PRIMARY PRANEETH L ONLY CARE CENTERINC 08317 [facility] SHOWER, NONSTRESS 0 PRIMARY PRANEETH L TEST CARE CENTERINC NEURAXIAL 26757 [facility] LABOR 0 LTH , MARI ANALG/ANE ANESTHESI S PLND A PSC VAGINAL DELIVERY URNLS DIP 74492 [facility] SHOWER, 0 PRIMARY PRANEETH L STICK/TAB CARE LET RGNT CENTERINC NON-AUTO W/O MICRSCP REPAIR OF 7569 STAR GRAVES OTHER 0 W W CURRENT [facility] OBSTETRIC [facility] LACERATIO N OTHER 7359 STAR GRAVES MANUALLY 0 W W ASSISTED [facility] DELIVERY [facility] 52637 GURJIT PABON CAROL, NONSTRESS 0 PRIMARY SUGEY R TEST CARE CENTERINC SMR PRIM 97608 [facility], SRC WET 0 [facility] CUL 02858 STAR GRAVES PRSMPTV 0 W W [facility] SCRN CENTER CENTER W/COLONY ESTIMJ URNLS DIP 31860 GURJIT LUJAN, 0 PRIMARY CARRIE STICK/TAB CARE LET RGNT CENTERINC NON-AUTO W/O MICRSCP CHIROPRAC 03527 ATTILA RUBIO, TIC 0 FAMILY PAULINE R MANIPLTV CHIROPRAC TX TIC EXTRASPIN AL 1/> REGION THERAPEUT 33088 ATTILA RUBIO, IC PX 1/> 0 FAMILY PAULINE R AREAS CHIROPRAC EACH 15 TIC MIN EXERCISES APPL 86132 AVISUNITA RUBIO, MODALITY 0 FAMILY PAULINE R 1/> AREAS CHIROPRAC TIC ULTRAVIOL ET MANUAL 74805 AVISUNITA RUBIO, THERAPY 0 FAMILY PAULINE R TQS 1/> CHIROPRAC REGIONS TIC EACH 15 MINUTES CHIROPRAC 15867 ATTILA RUBIO, TIC 0 FAMILY PAULINE R MANIPULAT CHIROPRAC LLOYD TX TIC SPINAL 3-4 REGIONS RADEX 58285 SHREVEPORTSUNITA ABDI, ELBOW 2 0 TEAGAN KRUGER RADIOLOGY ASSOCIATE S PSC CULTURE 06860 LABORATOR LABORATOR BACTERIAL 0 Y & Y & BIODIAGNO BIODIAGNO QUANTTATI STICS STICS VE COLONY COUNT URINE 24057 GURJIT CO SHOWER, NONSTRESS 0 PRIMARY PRANEETH L TEST CARE CENTERINC INSJ 11451 GURJIT CO SHOWER, NON-NDWEL 0 PRIMARY PRANEETH L LG CARE BLADDER CENTERINC CATHETER URNLS DIP 72445 GURJIT PABON SHOWER, 0 PRIMARY PRANEETH L STICK/TAB CARE LET RGNT CENTERINC NON-AUTO W/O MICRSCP URNLS DIP 49850 LABORATOR LABORATOR 0 Y & Y & STICK/TAB BIODIAGNO BIODIAGNO LET RGNT STICS STICS AUTO W/O MICROSCOP Y URNLS DIP 27400 GURJIT LUJAN, 0 PRIMARY CARRIE STICK/TAB CARE LET RGNT CENTERINC NON-AUTO W/[place] [address] FLORENCIA DON, RADIAL 0 K. K. HEAD/NECK CALLIE LEDESMA FX W/O MANIPULAT [place] PREG 23587 GURJIT PABON MEESE, UTERUS 0 PRIMARY ROMELIA P W/DETAIL CARE CENTERINC CEE 1ST GESTATION IADNA 38702 LABORATOR LABORATOR TRICHOMON 0 Y & Y & BIODIAGNO BIODIAGNO VAGINALIS STICS STICS DIRECT PROBE TQ IADNA 00751 LABORATOR LABORATOR NEISSERIA 0 Y & Y & BIODIAGNO BIODIAGNO GONORRHOE STICS STICS AE AMPLIFIED PROBE TQ IADNA 32025 LABORATOR LABORATOR CHLAMYDIA 0 Y & Y & BIODIAGNO BIODIAGNO TRACHOMAT STICS STICS IS AMPLIFIED PROBE TQ IADNA 04857 LABORATOR LABORATOR GARDNEREL 0 Y & Y & LA BIODIAGNO BIODIAGNO VAGINALIS STICS STICS DIRECT PROBE TQ CHIROPRAC 72621 ATTILA RUBIO, TIC 0 FAMILY PAULINE R MANIPULAT CHIROPRAC LLOYD TX TIC SPINAL 3-4 REGIONS MANUAL 27147 ATTILA RUBIO THERAPY 0 FAMILY PAULINE R TQS 1/> CHIROPRAC REGIONS TIC EACH 15 MINUTES APPL 30105 SHREVEPORTSUNITA RUBIO, MODALITY 0 FAMILY PAULINE R 1/> AREAS CHIROPRAC TRACTION TIC MECHANICA L CHIROPRAC 47508 SHREVEPORTSUNITA RUBIO TIC 0 FAMILY PAULINE R MANIPLTV CHIROPRAC TX TIC EXTRASPIN AL 1/> REGION URNLS DIP 86421 GURJIT LUJAN, 9 PRIMARY CARRIE STICK/TAB CARE LET RGNT CENTER[place] [address] GURJIT LUJAN, 9 PRIMARY CARRIE UTERUS 14 CARE WK CENTERINC TRANSABDL GESTAT MOLECULAR 08047 QUEST COSME QUEST COSME DX AMP 9 RADHA GARCIA [facility] 1ST 2 SEQ MOLECULAR 59909 QUEST COSME QUEST COSME 9 RADHA GARCIA DIAGNOSTI [facility] INTERPRET ATION & REPORT MUTATION 48359 QUEST COSME QUEST COSME ID 9 RADHA GARCIA ENZYMATIC [facility] LIG/PRIME R XTN 1 SGM EA COLLECTIO 40394 GURJIT LUJAN, N VENOUS 9 PRIMARY CARRIE BLOOD CARE VENIPUNCT CENTERINC URE MOLEC 27801 QUEST COSME QUEST COSME ISOL/XTRJ 9 RADHA GARCIA HP NUCLEIC [facility] ACID EA TYPE MOLECULAR 59709 QUEST COSME QUEST COSME DX AMP 9 RADHA RADHA TARGET MULTIPLEX [facility] EA ADDL SEQ MOLEC 07069 QUEST COSME QUEST COSME SEP&ID HI 9 RADHA GARCIA RESOLU TQ EACH [facility] NUCLEIC ACID PREP URINE 92858 GURJIT CO YOUNG, 9 PRIMARY CARRIE TEST CARE VISUAL CENTERINC COLOR CMPRSN METHS THERAPEUT 66497 ATTILA RUBIO, IC PX 1/> 9 FAMILY PAULINE R AREAS CHIROPRAC EACH 15 TIC MIN EXERCISES APPL 19016 ATTILA RUBIO MODALITY 9 FAMILY PAULINE R 1/> AREAS CHIROPRAC TRACTION TIC MECHANICA L CHIROPRAC 96803 ATTILA RUBIO TIC 9 FAMILY PAULINE R MANIPLTV CHIROPRAC TX TIC EXTRASPIN AL 1/> REGION CHIROPRAC 60334 ATTILA RUBIO TIC 9 FAMILY PAULINE R MANIPULAT CHIROPRAC LLOYD TX TIC SPINAL 3-4 REGIONS MANUAL 93637 ATTILA RUBIO THERAPY 9 FAMILY PAULINE R TQS 1/> CHIROPRAC REGIONS TIC EACH 15 MINUTES CHIROPRAC 43647 ATTILA RUBIO TIC 9 FAMILY PAULINE R MANIPULAT CHIROPRAC LLOYD TX TIC SPINAL 3-4 REGIONS MANUAL 47044 ATTILA RUBIO THERAPY 9 FAMILY PAULINE R TQS 1/> CHIROPRAC REGIONS TIC EACH 15 MINUTES CHIROPRAC 60680 ATTILA RUBIO TIC 9 FAMILY PAULINE R MANIPLTV CHIROPRAC TX TIC EXTRASPIN AL 1/> REGION THERAPEUT 01777 ATTILA RUBIO, IC PX 1/> 9 FAMILY PAULINE R AREAS CHIROPRAC EACH 15 TIC MIN EXERCISES SELF-CARE 11043 ATTILA RUBIO, /HOME 9 FAMILY PAULINE R MGMT CHIROPRAC TRAINING TIC EACH 15 MINUTES CHIROPRAC 49925 ATTILA RUBIO, TIC 9 FAMILY PAULINE R MANIPLTV CHIROPRAC TX TIC EXTRASPIN AL 1/> REGION APPL 65390 ATTILA RUBIO, MODALITY 9 FAMILY PAULINE R 1/> AREAS CHIROPRAC TRACTION TIC MECHANICA L STRAPPING 26304 ATTILA RUBIO, LOW BACK 9 FAMILY PAULINE R CHIROPRAC TIC CHIROPRAC 33557 DREA HOWE 9 FAMILY PAULINE R MANIPULAT CHIROPRAC LLOYD TX TIC SPINAL 3-4 REGIONS MANUAL 08534 ATTILA RUBIO, THERAPY 9 FAMILY PAULINE R TQS 1/> CHIROPRAC REGIONS TIC EACH 15 MINUTES Encounters Encounter Start End Date Code Location Performer Type Date OFFICE 01217 [facility]IT [facility] FAMILY T VISIT HEALTH 15 CTR MINUTES EMERGENCY [address] [facility] 7 7 REGIONAL DEPARTMEN T VISIT EMERGENCY HIGH/URGE NT SEVERITY OFFICE 50432 [facility] 7 7 SURGICAL T VISIT SPECIALIS [address] [facility] - 7 7 REGIONAL OUTPATIEN MEDICAL T OFFICE 73[address] [facility] 7 REGIONAL T VISIT MEDICAL [address] [facility] [place] 7 7 REGIONAL DEPARTMEN T VISIT EMERGENCY HIGH/URGE NT SEVERITY OFFICE [address] [facility] 7 7 REGIONAL T VISIT MEDICAL 10 MINUTES OFFICE 50762 STRubin [facility] 7 7 NAS T VISIT FAMILY 15 MEDICINE MINUT[address] E [facility] - 7 7 REGIONAL OUTPATIEN MEDICAL T OFFICE 43327 [facility] 6 6 REGIONAL T VISIT 5 MED[address] [facility] 6 6 NAS T VISIT FAMILY 15 MEDICINE [address] E [facility] - 6 6 REGIONAL OUTPATIEN MEDICAL T [facility] - 6 6 REGIONAL OUTPATIEN MEDIC T EMERGENCY 52019 [facility] 6 6 REGIONAL DEPARTMEN MEDIC T VISIT LIMITED/M INOR PROB OFFICE 98252 STRubin [facility] 6 6 NAS KRI T VISIT FAMILY 15 MEDICINE [address] E [facility] [facility] - 6 6 REGIONAL OUTPATIEN MEDIC T OFFICE 60332 [facility] 6 6 REGIONAL T VISIT 5 MEDIC MINUTES OFFICE 95176 ALLERGY, LIVAS [facility] 6 ASTHMA & T NEW 45 IMMUNOLOG MINUTES Y OFFICE 94803 [place] ANNA KIA [facility] 6 6 MEDICAL T VISIT SERV 15 FOUNDATIO MINUTES N OFFICE 48411 STRubin HANKS [facility] 6 6 NAS T VISIT FAMILY 15 CARE MINUTES CLINI OFFICE 00716 [facility] 6 REGIONAL T VISIT [address] [facility] - 6 6 REGIONAL OUTPATIEN MEDIC T [facility] - 6 6 REGIONAL OUTPATIEN MEDIC T OFFICE 02087 [facility] 6 REGIONAL T VISIT MEDIC [address] [facility] 6 6 REGIONAL T VISIT 5 MEDIC MINUTES OFFICE 71812 STRubin [facility] 6 6 NAS BOBBIN FIXER T VISIT FAMILY 15 CARE MINUTES [facility] - 6 6 REGIONAL OUTPATIEN MEDIC T [facility] - 6 6 REGIONAL OUTPATIEN MEDIC T OFFICE 45959 [facility] 6 6 REGIONAL T VISIT MEDIC [address] [facility] 6 6 REGIONAL T VISIT MEDIC [address] [facility] - 6 6 REGIONAL OUTPATIEN MEDIC T OFFICE [address] [facility] 6 6 REGIONAL T VISIT [address] [facility] - 6 6 REGIONAL OUTPATIEN MEDIC T OFFICE [address] [facility] 6 6 NAS T VISIT FAMILY 15 CARE [address] [facility] - 6 6 REGIONAL OUTPATIEN MEDIC T OFFICE [address]17 [facility] AMA OUTPAT[facility] 6 6 FAMILY T VISIT MEDICINE- 15 OW MINUTES OFFICE [address]34 [facility] 6 6 REGIONAL T VISIT MEDIC [address] [facility] 6 6 REGIONAL T VISIT MEDIC [address] [facility] - 6 6 REGIONAL OUTPATIEN MEDIC T [facility] - 6 6 REGIONAL OUTPATIEN MEDIC T OFFICE 56081 [facility] 6 6 SURGICAL T VISIT SPECIALIS [address] [facility] - 6 6 REGIONAL OUTPATIEN MEDIC T OFFICE [address]684 [facility] 6 6 REGIONAL T VISIT MEDIC [address] [facility] 6 6 REGIONAL T VISIT [address] [facility] - 6 6 REGIONAL OUTPATIEN MEDIC T OFFICE [address] [facility] 6 6 NAS T VISIT FAMILY 15 CARE [address] [facility] - 6 6 REGIONAL OUTPATIEN MEDIC T OFFICE 68287 [facility] 6 6 REGIONAL T VISIT 5 MEDIC MINUTES EMERGENCY [address]72 [facility] SOUZA 6 6 REGIONAL LIS DEPARTMEN T VISIT EMERGENCY MODERATE SEVERITY [facility]OSPITAL [facility] - 6 6 REGIONAL OUTPATIEN MEDIC T [facility] - 6 6 REGIONAL OUTPATIEN MEDIC T OFFICE 70424 [facility] 6 6 REGIONAL T VISIT 5 MEDIC MINUTES OFFICE 42981 STRubin [place] [facility] 6 6 NAS T VISIT FAMILY 15 CARE [address] [facility] - 6 6 REGIONAL OUTPATIEN MEDIC T OFFICE 27770 STRubin [facility] [facility] 6 6 NAS T VISIT FAMILY 15 CARE MINUTES CLINI OFFICE [address]100 [facility] 6 6 REGIONAL T VISIT MEDIC [address] [facility] - 6 6 REGIONAL OUTPATIEN MEDIC T [facility] - 6 6 REGIONAL OUTPATIEN MEDIC T OFFICE 53462 [facility] 6 6 REGIONAL T VISIT MEDIC 10 MINUTES OFFICE 32210 JEREMY LUNA [facility] 6 6 KATARINA KATARINA T VISIT [address] [facility] 6 6 REGIONAL DEPARTMEN MEDIC T VISIT LOW/MODER SEVERITY EMERGENCY 62159 SOUZA SOUZA 6 6 LIS LIS DEPARTMEN T VISIT MODERATE SEVERITY [facility] - 6 6 [facility]IONAL OUTPATIEN MEDIC T [facility] - 6 6 [facility]IONAL OUTPATIEN MEDIC T OFFICE 94718 [facility] OUTPATI[facility] 6 6 REGIONAL T VISIT MEDIC 10 MINUTES OFFICE 92934 [facility] [place] A[facility] OUTPATIEN 6 6 NAS T VISIT FAMILY 15 CARE MINUTES CLINI OFFICE 91621 [facility] OUTPATI[facility] 6 6 REGIONAL T VISIT [address] [facility] - 6 6 REGIONAL OUTPATIEN MEDIC T [facility] 6 6 [facility]IONAL OUTPATIEN MEDIC T OFFICE 78371 [facility] OUTPATIEN 6 6 REGIONAL T VISIT MEDIC [address] [facility] - 6 6 REGIONAL OUTPATIEN MEDIC T OFFICE 24217 [facility] OUTPATI[facility] 6 6 REGIONAL T VISIT 5 MEDIC MINUTES OFFICE [address] [facility] 6 6 NAS BOBBIN FIXER T VISIT FAMILY 15 CARE MINUTES CLINI OFFICE 07532 [facility] OUTPATIEN 6 6 REGIONAL T VISIT 5 MEDIC MINUTES OFFICE [address] [facility] NA[facility] OUTPATIEN 6 6 NAS T VISIT FAMILY 10 MEDICINE [address] E [facility] - 6 6 REGIONAL OUTPATIEN MEDIC T [facility] - 6 6 REGIONAL OUTPATIEN MEDIC T EMERGENCY 94334 [facility] PACE LUIS MANUEL 6 6 REGIONAL DEPARTMEN T VISIT EMERGENCY HIGH/URGE NT SEVERITY [facility] - 6 6 REGIONAL OUTPATIEN MEDIC T OFFICE 08527 [facility] OUTPATIEN 6 6 REGIONAL T VISIT 5 MEDIC MINUTES OFFICE [address]23 [facility] OUTPATIEN 6 6 NAS BOBBIN FIXER T VISIT FAMILY 15 CARE MINUTES CLINI [facility] - 6 6 REGIONAL OUTPATIEN MEDIC T [facility] - 6 6 REGIONAL OUTPATIEN MEDIC T EMERGENCY 18477 [facility] 6 6 REGIONAL DEPARTMEN MEDIC T VISIT MODERATE SEVERITY OFFICE 74787 [facility] OUTPATIEN 6 6 NAS SIE T VISIT FAMILY 15 MEDICINE [address] [facility] - 6 6 REGIONAL OUTPATIEN MEDIC T OFFICE 19010 [facility] OUTPATIEN 6 6 REGIONAL T VISIT 5 MEDIC MINUTES OFFICE 20590 [facility] FINE OUTPATIEN 6 6 NAS FRA T VISIT FAMILY 15 CARE MINUTES CLINI OFFICE 71552 [facility] OUTPATIEN 6 6 REGIONAL T VISIT [address] [facility] - 6 6 REGIONAL OUTPATIEN MEDIC T OFFICE [address] [facility] OUTPATIEN 5 5 NAS FRA T VISIT FAMILY 25 CARE MINUTES CLINI [facility] - 5 5 REGIONAL OUTPATIEN MEDIC T OFFICE 31972 [facility] HANKS OUTPATIEN 5 5 NAS T VISIT FAMILY 15 CARE MINUTES CLINI OFFICE 01782 [facility] OUTPATIEN 5 5 REGIONAL T VISIT 5 MEDIC MINUTES OFFICE 09728 [facility] OUTPATIEN 5 5 REGIONAL T VISIT [address] [facility] [facility] - 5 5 REGIONAL OUTPATIEN MEDIC T OFFICE 93451 [facility] [place] OUTPATIEN 5 5 NAS SIE T VISIT FAMILY 15 MEDICINE MIN[address] E [facility] - 5 5 REGIONAL OUTPATIEN MEDIC T OFFICE 94224 [facility] OUTPATIEN 5 5 REGIONAL T VISIT 5 MEDIC MINUTES EMERGENCY 38156 [facility] BEN JUS 5 5 REGIONAL DEPARTMEN T VISIT EMERGENCY HIGH/URGE NT SEVERITY [facility] - 5 5 REGIONAL OUTPATIEN MEDIC T OFFICE 17723 [place] OUTPATIEN 5 5 SURGICAL III SHARON T VISIT SPECIALIS 15 T MINUTES OFFICE [address] [facility] OUTPATIEN 5 5 REGIONAL T VISIT MEDIC [address] [facility] - 5 5 REGIONAL OUTPATIEN MEDIC T OFFICE 67958 [facility] OUTPATIEN 5 5 REGIONAL T VISIT MEDIC 10 MINUTES OFFICE 41877 [place] OUTPATIEN 5 5 SURGICAL III SHARON T VISIT SPECIALIS [address] [facility] - 5 5 REGIONAL OUTPATIEN MEDIC T [facility] - 5 5 REGIONAL OUTPATIEN MEDIC T OFFICE 45830 [facility] TAYLOR OUTPATIEN 5 5 NAS BOBBIN FIXER T VISIT FAMILY 15 CARE MINUTES CLINI OFFICE 76283 [facility] OUTPATIEN 5 5 REGIONAL T VISIT 5 MEDIC MINUTES OFFICE 88148 [facility] OUTPATIEN 5 5 REGIONAL T VISIT MEDIC 10 [facility] - 5 5 REGIONAL OUTPATIEN MEDIC T OFFICE 18867 [place] OUTPATIEN 5 5 SURGICAL III SHARON T VISIT SPECIALIS 25 T MINUTES EMERGENCY [address]20 [facility] OVERALL 5 5 REGIONAL PHI DEPARTMEN T VISIT EMERGENCY HIGH/URGE NT SEVERITY EMERGENCY 38782 ST NAS SEGOVIA 5 5 REGIONAL CAR DEPARTMEN T VISIT EMERGENCY HIGH/URGE NT SEVERITY EMERGENCY 85961 ST [facility] SEGOVIA DEPT 5 5 REGIONAL CAR VISIT HIGH EMERGENCY SEVERITY& THREAT [facility] ST NAS - 5 5 REGIONAL OUTPATIEN MEDIC T OFFICE 01936 [place] OUTPATIEN 5 5 SURGICAL III SHARON T NEW 30 SPECIALIS MINUTES T OFFICE 13893 [facility] OUTPATIEN 5 5 REGIONAL T VISIT 5 MEDIC MINUTES EMERGENCY 73181 [facility] NAS SEGOVIA 5 5 REGIONAL CAR DEPARTMEN T VISIT EMERGENCY MODERATE SEVERITY EMERGENCY 33939 ST NAS KWON 5 5 REGIONAL Y LITTLE DEPARTMEN MEDICAL T VISIT C HIGH/URGE NT SEVERITY [facility] ST NAS - 5 5 REGIONAL OUTPATIEN MEDIC T EMERGENCY 06562 ST NAS 5 5 REGIONAL DEPARTMEN MEDIC T VISIT MODERATE SEVERITY OFFICE 22972 ST NAS OUTPATIEN 5 5 REGIONAL T VISIT [address] NAS - 5 5 REGIONAL OUTPATIEN MEDIC T OFFICE [address] [facility] OUTPATIEN 5 5 NAS T VISIT FAMILY 15 MEDICINE [address] E [facility] NAS - 5 5 REGIONAL OUTPATIEN MEDIC T OFFICE 39353 [place] OUTPATIEN 5 5 SIE SIE T VISIT [address] [facility] OUTPATIEN 5 5 REGIONAL T VISIT 5 MEDIC MINUTES OFFICE 37725 GURJIT PUGH OUTPATIEN 5 5 PRIMARY T VISIT CARE 15 CENTER MINUTES EMERGENCY 75623 KYLEIGH ARIZMENDI DEPT 4 4 AMIRA AMIRA VISIT HIGH SEVERITY& THREAT FUNCJ EMERGENCY 05440 FRANCO KER FRANCO KER 4 4 DEPARTMEN T VISIT HIGH/URGE NT SEVERITY OFFICE 00820 GURJIT PUGH OUTPATIEN 4 4 PRIMARY T VISIT CARE 15 CENTER MINUTES EMERGENCY [address] [facility] LINDSAY 4 4 QUYNH COBB DEPARTMEN MED CTR T VISIT HIGH/URGE NT SEVERITY OFFICE 19225 GURJIT ARIAS OUTPATIEN 4 4 PRIMARY JAM T VISIT CARE 25 CENTER MINUTES EMERGENCY 70742 KYLEIGH ARIZMENDI 4 4 AMIRA AMIRA DEPARTMEN T VISIT MODERATE SEVERITY EMERGENCY 82837 STAR 4 4 W [facility] REGIONAL T VISIT MEDICAL HIGH/URGE NT SEVERITY [facility]OSPITAL [facility] - 4 4 [facility] 83117 [facility] OUTPATIEN 2 2 JAM JAM T VISIT 15 MINUTES [facility]OSPITAL [facility] - 2 2 [facility] OFFICE 89309 [facility] OUTPATIEN 2 2 JAM JAM T VISIT 15 MINUTES [facility]OSP[facility] - 2 2 [facility] T OFFICE 86509 [facility] OUTPATIEN 2 2 JAM JAM T VISIT 15 MINUTES OFFICE 93620 [facility] OUTPATIEN 2 2 JAM JAM T VISIT 15 MINUTES OFFICE 75946 [facility] OUTPATIEN 2 2 JAM JAM T VISIT 15 MINUTES OFFICE 64573 [facility] OUTPATIEN 2 2 JAM JAM T VISIT 15 MINUTES OFFICE 25547 [facility] OUTPATIEN 2 2 JAM JAM T VISIT 15 MINUTES OFFICE 71895 [facility] OUTPATIEN 2 2 JAM JAM T VISIT 15 MINUTES OFFICE 56673 [facility] OUTPATIEN 2 2 JAM JAM T NEW 45 MINUTES OFFICE 37269 TOÑO ZIMMERMAN ANGEL OUTPATIEN 2 2 T NEW 20 COMM[facility] EMERGENCY 80554 MJ PARRA 2 2 EMERGENCY DEPARTMEN SERVICES T VISIT HIGH/URGE NT SEVERITY EMERGENCY 35197 MJ MOON 2 2 EMERGENCY [facility] DEPARTMEN SERVICES T VISIT HIGH/URGE NT SEVERITY EMERGENCY 80799 STAR 2 2 W [facility] T VISIT MEDICAL HIGH/URGE NT SEVERITY HOSPITAL STAR - 2 2 W OUTPATIEN REGIONAL T MEDICAL EMERGENCY 13062 MJ MOON DEPT 2 2 EMERGENCY CHR VISIT SERVICES HIGH SEVERITY& THREAT FUNCJ EMERGENCY 43311 MJ MOON 1 1 EMERGENCY [facility]R DEPARTMEN SERVICES T VISIT HIGH/URGE NT SEVERITY EMERGENCY 36182 MJ MOON 0 0 EMERGENCY CHR DEPARTMEN SERVICES T VISIT HIGH/URGE NT SEVERITY OFFICE 79282 BELLE MEAD RUBIO OUTPATIEN 0 0 FAMILY RIT T VISIT CHIROPRAC 10 TI MINUTES OFFICE 97513 KOO KOO OUTPATIEN 0 0 AIYANA AIYANA T VISIT 10 MINUTES OFFICE 47573 GURJIT PABON SHOWER, OUTPATIEN 0 0 PRIMARY PRANEETH L T VISIT CARE 25 CENTERINC MINUTES OFFICE 24298 KOOCARLOS ALBERTO STACYER OUTPATIEN 0 0 AIYANA AIYANA T NEW 30 MINUTES OFFICE 54058 GURJIT ALVARADO, OUTPATIEN 0 0 PRIMARY LYNNE M T VISIT CARE 10 CENTERINC MINUTES EMERGENCY 36874 ALEXANDRO 0 0 [facility] DEPARTMEN INC T VISIT LOW/MODER SEVERITY HOSPITAL ALEXANDRO - 0 0 [facility] OUTPATIEN INC T EMERGENCY 16055 MJ ARIZMENDI, DEPT 0 0 EMERGENCY CASH S VISIT SERVICES HIGH SEVERITY& ASSOCIATE THREAT S FUN OFFICE 45245 GURJIT PABON SHOWER, OUTPATIEN 0 0 PRIMARY PRANEETH L T VISIT CARE 15 CENTERINC MINUTES HOSPITAL MEADOWVIE - 0 0 W INPATIENT [facility] OFFICE 86324 [facility] T VISIT FAMILY 15 CARE, MINUTES INC. OFFICE 56662 GURJIT LUJAN, OUTPATIEN 0 0 PRIMARY CARRIE T VISIT CARE 15 CENTERINC MINUTES HOSPITAL MEADOWVIE - 0 0 W [facility] HOSPITAL MEADOWVIE - 0 0 W [facility] OFFICE 14636 AJAY RIVAS 0 0 PRIMARY PRANEETH L T VISIT CARE 15 CENTERINC MINUTES OFFICE 95026 CARMEN LEWPATIEN 0 0 PRIMARY CARRIE T VISIT CARE 15 CENTERINC MINUTES OFFICE 11610 CARMEN PETERSONPATIEN 0 0 PRIMARY AZRA T VISIT CARE 15 CENTERINC MINUTES OFFICE 85615 AJAY MURILLO 0 0 PRIMARY ROMELIA P T VISIT CARE 15 CENTERINC MINUTES OFFICE 27019 AJAY LEW 9 9 PRIMARY CARRIE T VISIT CARE 15 CENTERINC MINUTES OFFICE 82002 AJAY LEW 9 9 PRIMARY CARRIE T VISIT CARE 25 CENTERINC MINUTES OFFICE 97801 AJAY HOWE 9 9 FAMILY PAULINE R T VISIT CHIROPRAC 10 TIC MINUTES
--- OUTSIDE RECORDS SUMMARY | 2017-07-30 06:42 | External Medical Summary Rpt | CCD ---
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 S TESTING OTHER 7359 [facility] MANUALLY 2 CONFUCIANIST [facility] ASSISTED [facility] DELIVERY OTHER 7309 [facility] ARTIFICIA 2 CONFUCIANIST CONFUCIANIST L RUPTURE [facility] 52367 [facility] BIOPHYSIC 2 JAM JAM AL PROFILE NON-STRES S TESTING 65829 [facility] NONSTRESS 2 CONFUCIANIST CONFUCIANIST TEST HOSP HOSP 33344 CONFUCIANIST CONFUCIANIST NONSTRESS 2 LABORIST LABORIST TEST SERVICE SERVICE 94761 [facility] NONSTRESS 2 JAM JAM TEST 79418 [facility] NONSTRESS 2 JAM JAM TEST IADNA 72911 ASSOCIATE BELLETO PAPILLOMA [address]IRUS PATHOLOGI HUMAN STS PLC AMPLIFIED PROBE TQ IADNA 97658 ASSOCIATE VIPINNINGTO NEISSERIA [address]I GONORRHOE STS PLC AE AMPLIFIED PROBE TQ IADNA 53400 ASSOCIATE VIPINNINGTO CHLAMYDIA [address] TRACHOMAT STS PLC IS AMPLIFIED PROBE TQ CULTURE 31417 PATH PATH BACTERIAL 2 GROUP GROUP LABS [employer] LABS [employer] QUANTTATI VE COLONY COUNT URINE CYTP C/V 03779 ASSOCIATE BELLETO AUTO THIN [address] LYR PATHOLOGI PREPJ SCR STS PLC MNL RESCR PHYS URNLS DIP 52491 [address] PATH 2 GROUP GROUP STICK/TAB LABS [employer] [facility] [employer] LET REAGENT AUTO MICROSCOP Y US PREG 12752 [facility] UTERUS 2 JAM JAM AFTER 1ST TRIMEST GESTATION GLUC BLD 77837 [facility] ZIMMERMAN ANGEL GLUC MNTR 2 DEV COMMUNITY CLEARED HEALTH C FDA SPEC HOME USE IADNA 93233 [facility] ANGEL CHLAMYDIA 2 COMMUNITY TRACHOMAT HEALTH C IS AMPLIFIED PROBE TQ IADNA 19519 [facility] ANGEL NEISSERIA 2 COMMUNITY GONORRHOE HEALTH C AE AMPLIFIED PROBE TQ URINE 54163 [facility] ANGEL 2 TEST COMMUNITY VISUAL HEALTH C COLOR CMPRSN METHS IADNA 88743 MEADOWVIE MEADOWVIE CHLAMYDIA 2 W W [facility] TRACHOMAT MEDICAL MEDICAL IS AMPLIFIED PROBE TQ SMR PRIM 50491 MEADOWVIE MEADOWVIE SRC 2 W W GRAM/GIEM REGIONAL REGIONAL SA STAIN MEDICAL MEDICAL BCT FUNGI/EFRAIN L SMR PRIM 71757 MEADOWVIE MEADOWVIE SRC WET 2 W W [facility] NFCT AGT MEDICAL MEDICAL US PREG 19305 MEADOWVIE MEADOWVIE UTERUS 2 W W REAL TIME REGIONAL REGIONAL W/IMAGE MEDICAL MEDICAL DCMTN TRANSVAG CUL BACT 61718 STAR GRAVES XCPT 2 W W URINE REGIONAL [facility] BLOOD/STO MEDICAL MEDICAL OL AEROBIC ISOL CULTURE 18138 STAR LATISHA BACTERIAL 2 W ALRRY [facility] QUANTTATI MEDICAL VE COLONY COUNT URINE COLLECTIO 32517 STAR GRAVES N VENOUS 2 W W BLOOD [facility] VENIPUNCT MEDICAL MEDICAL URE BLOOD 61356 STAR GRAVES COUNT 2 W W COMPLETE [facility] AUTO&AUTO MEDICAL MEDICAL DIFRNTL WBC GONADOTRO 14850 STAR GRAVES PIN 2 W W CHORIONIC [facility] MEDICAL MEDICAL QUANTITAT LLOYD URNLS DIP 93358 STAR MOWVALORIE 2 W W STICK/TAB [facility] MEDICAL REAGENT AUTO MICROSCOP Y INCISION 71463 MJ MOON & 0 EMERGENCY CHR DRAINAGE SERVICES ABSCESS SIMPLE/SI NGLE APPL 95178 MORGAN RUBIO MODALITY 0 FAMILY RIT 1/> AREAS CHIROPRAC TI ULTRAVIOL ET CHIROPRAC 30866 MORGAN RUBIO TIC 0 FAMILY RIT MANIPULAT CHIROPRAC LLOYD TX TI SPINAL 3-4 REGIONS MANUAL 54343 [facility] THERAPY 0 FAMILY RIT TQS 1/> CHIROPRAC REGIONS TI EACH 15 MINUTES CHIROPRAC 55373 MORGAN RUBIO TIC 0 FAMILY RIT MANIPLTV CHIROPRAC TX TI EXTRASPIN AL 1/> REGION WALKING L4386 GIOVANY Mcbride BOOT 0 KOO KOO NON-PNEUM DPM DPM ATIC PREFAB CUSTOM FIT ANES OPEN 10149 INDEPENDE YASMINE DAM PROC 0 NT BONES ANESTHESI LOWER OLOGIST LEG/ANKLE /FOOT NOS PARTIAL 35803 KOO KOO EXCISION 0 AIYANA AIYANA BONE TALUS/KENDRA CANEUS CORRJ 36869 KOO KOO HALLUX 0 AIYANA AIYANA VALGUS W/SESMDC W/DIST METAR OSTEOT RADEX 43930 RADIOLOGY LEIF FOOT 0 TUS COMPLETE ASSOCIATE MINIMUM [address] [place] [address] ANU RODRIGUEZ, HEAD/BRAI 0 MEDICAL DEEPAK P N W/O IMAGING CONTRAST ASSOCIATE MATERIAL S 3D 66700 ANU RODRIGUEZ, RENDERING 0 MEDICAL DEEPAK P W/INTERP IMAGING & ASSOCIATE POSTPROCE S SS SUPERVISI ON URNLS DIP 95077 [facility]DR[facility] STICK/TAB [place] [address] [facility]LEX[facility] INFUSION 0 [facility] THERAPY/P INC INC ROPHYLAXI S /DX 1ST TO 1 HR URINE 39278 ALEXANDRO [facility] TEST INC INC VISUAL COLOR CMPRSN [facility] 25876 [facility] SHOWER, DISCHARGE 0 PRIMARY PRANEETH L DAY CARE MANAGEMEN CENTERINC T 30 MIN/< SBSQ 53748 GURJIT [place] SHOWER, HOSPITAL 0 PRIMARY PRANETEH L CARE/DAY CARE 15 CENTERINC MINUTES VAGINAL 24565 [facility] SHOWER, DELIVERY 0 PRIMARY PRANEETH L ONLY CARE CENTERINC 73385 [facility] SHOWER, NONSTRESS 0 PRIMARY PRANEETH L TEST CARE CENTERINC NEURAXIAL 16334 [facility] LABOR 0 LTH , MARI ANALG/ANE ANESTHESI S PLND A PSC VAGINAL DELIVERY URNLS DIP 68273 [facility] SHOWER, 0 PRIMARY PRANEETH L STICK/TAB CARE LET RGNT CENTERINC NON-AUTO W/O MICRSCP REPAIR OF 7569 STAR GRAVES OTHER 0 W W CURRENT [facility] OBSTETRIC [facility] CENTER LACERATIO N OTHER 7359 STAR GRAVES MANUALLY 0 W W ASSISTED [facility] DELIVERY [facility] [place] [address] GURJIT PABON CAROL, NONSTRESS 0 PRIMARY SUGEY R TEST CARE CENTERINC SMR PRIM 29161 [facility], SRC WET 0 [facility] CUL 77866 STAR GRAVES PRSMPTV 0 W W [facility] SCRN CENTER CENTER W/COLONY ESTIMJ URNLS DIP 80591 GURJIT LUJAN, 0 PRIMARY CARRIE STICK/TAB CARE LET RGNT CENTERINC NON-AUTO W/O MICRSCP CHIROPRAC 79248 ATTILA RUBIO, TIC 0 FAMILY PAULINE R MANIPLTV CHIROPRAC TX TIC EXTRASPIN AL 1/> REGION THERAPEUT 41677 ATTILA RUBIO, IC PX 1/> 0 FAMILY PAULINE R AREAS CHIROPRAC EACH 15 TIC MIN EXERCISES APPL 97948 AVISUNITA RUBIO, MODALITY 0 FAMILY PAULINE R 1/> AREAS CHIROPRAC TIC ULTRAVIOL ET MANUAL 01575 AVISUNITA RUBIO, THERAPY 0 FAMILY PAULINE R TQS 1/> CHIROPRAC REGIONS TIC EACH 15 MINUTES CHIROPRAC 94859 ATTILA RUBIO, TIC 0 FAMILY PAULINE R MANIPULAT CHIROPRAC LLOYD TX TIC SPINAL 3-4 REGIONS RADEX 21985 DENTONSUNITA ABDI, ELBOW 2 0 TEAGAN KRUGER RADIOLOGY ASSOCIATE S PSC CULTURE 26860 LABORATOR LABORATOR BACTERIAL 0 Y & Y & BIODIAGNO BIODIAGNO QUANTTATI STICS STICS VE COLONY [place] URINE 67593 GURJIT CO SHOWER, NONSTRESS 0 PRIMARY PRANEETH [place] [address] GURJIT CO SHOWER, NON-NDWEL 0 PRIMARY PRANEETH L LG CARE BLADDER CENTERINC CATHETER URNLS DIP 60712 GURJIT PABON SHOWER, 0 PRIMARY PRANEETH L STICK/TAB CARE LET RGNT CENTERINC NON-AUTO W/O MICRSCP URNLS DIP 44751 LABORATOR LABORATOR 0 Y & Y & STICK/TAB BIODIAGNO BIODIAGNO LET RGNT STICS STICS AUTO W/O MICROSCOP Y URNLS DIP 17690 GURJIT LUJAN, 0 PRIMARY CARRIE STICK/TAB CARE LET RGNT CENTERINC NON-AUTO W/[place] [address] FLORENCIA DON, RADIAL 0 K. K. HEAD/NECK CALLIE LEDESMA FX W/O MANIPULAT ION US PREG 77599 GURJIT PABON MEESE, UTERUS 0 PRIMARY ROMELIA P W/DETAIL CARE CENTERINC CEE 1ST GESTATION IADNA 46781 LABORATOR LABORATOR TRICHOMON 0 Y & Y & BIODIAGNO BIODIAGNO VAGINALIS STICS STICS DIRECT PROBE TQ IADNA 36388 LABORATOR LABORATOR NEISSERIA 0 Y & Y & BIODIAGNO BIODIAGNO GONORRHOE STICS STICS AE AMPLIFIED PROBE TQ IADNA 16537 LABORATOR LABORATOR CHLAMYDIA 0 Y & Y & BIODIAGNO BIODIAGNO TRACHOMAT STICS STICS IS AMPLIFIED PROBE TQ IADNA 85117 LABORATOR LABORATOR GARDNEREL 0 Y & Y & LA BIODIAGNO BIODIAGNO VAGINALIS STICS STICS DIRECT PROBE TQ CHIROPRAC 00211 ATTILA RUBIO, TIC 0 FAMILY PAULINE R MANIPULAT CHIROPRAC LLOYD TX TIC SPINAL 3-4 REGIONS MANUAL 04952 ATTILA RUBIO THERAPY 0 FAMILY PAULINE R TQS 1/> CHIROPRAC REGIONS TIC EACH 15 MINUTES APPL 59004 DENTONSUNITA RUBIO, MODALITY 0 FAMILY PAULINE R 1/> AREAS CHIROPRAC TRACTION TIC MECHANICA L CHIROPRAC 36442 DENTONSUNITA RUBIO TIC 0 FAMILY PAULINE R MANIPLTV CHIROPRAC TX TIC EXTRASPIN AL 1/> REGION URNLS DIP 74940 GURJIT LUJAN, 9 PRIMARY CARRIE STICK/TAB CARE LET RGNT CENTERINC [place] [address] GURJIT LUJAN, 9 PRIMARY CARRIE UTERUS 14 CARE WK CENTERINC TRANSABDL GESTAT MOLECULAR 13109 QUEST COSME QUEST COSME DX AMP 9 RADHA GARCIA TARGET MULTIPLEX [facility] 1ST 2 SEQ MOLECULAR 43272 QUEST COSME QUEST COSME 9 RADHA GARCIA DIAGNOSTI [facility] INTERPRET ATION & REPORT MUTATION 28109 QUEST COSME QUEST COSME ID 9 RADHA GARCIA ENZYMATIC [facility] LIG/PRIME R XTN 1 SGM EA COLLECTIO 78841 GURJIT LUJAN, N VENOUS 9 PRIMARY CARRIE BLOOD CARE VENIPUNCT CENTERINC URE MOLEC 23886 QUEST COSME QUEST COSME ISOL/XTRJ 9 RADHA GARCIA HP NUCLEIC [facility] ACID EA TYPE MOLECULAR 02632 QUEST COSME QUEST COSME DX AMP 9 RADHA RADHA TARGET MULTIPLEX [facility] EA ADDL SEQ MOLEC 41287 QUEST COSME QUEST COSME SEP&ID HI 9 RADHA GARCIA RESOLU TQ EACH [facility] NUCLEIC ACID PREP URINE 24191 GURJIT CO YOUNG, 9 PRIMARY CARRIE TEST CARE VISUAL CENTERINC COLOR CMPRSN METHS THERAPEUT 13392 ATTILA RUBIO, IC PX 1/> 9 FAMILY PAULINE R AREAS CHIROPRAC EACH 15 TIC MIN EXERCISES APPL 96147 ATTILA RUBIO MODALITY 9 FAMILY PAULINE R 1/> AREAS CHIROPRAC TRACTION TIC MECHANICA L CHIROPRAC 54698 ATTILA RUBIO TIC 9 FAMILY PAULINE R MANIPLTV CHIROPRAC TX TIC EXTRASPIN AL 1/> REGION CHIROPRAC 44652 ATTILA RUBIO TIC 9 FAMILY PAULINE R MANIPULAT CHIROPRAC LLOYD TX TIC SPINAL 3-4 REGIONS MANUAL 78768 ATTILA RUBIO THERAPY 9 FAMILY PAULINE R TQS 1/> CHIROPRAC REGIONS TIC EACH 15 MINUTES CHIROPRAC 98121 ATTILA RUBIO TIC 9 FAMILY PAULINE R MANIPULAT CHIROPRAC LLOYD TX TIC SPINAL 3-4 REGIONS MANUAL 59047 ATTILA RUBIO THERAPY 9 FAMILY PAULINE R TQS 1/> CHIROPRAC REGIONS TIC EACH 15 MINUTES CHIROPRAC 14055 ATTILA RUBIO TIC 9 FAMILY PAULINE R MANIPLTV CHIROPRAC TX TIC EXTRASPIN AL 1/> REGION THERAPEUT 10563 ATTILA RUBIO, IC PX 1/> 9 FAMILY PAULINE R AREAS CHIROPRAC EACH 15 TIC MIN EXERCISES SELF-CARE 15518 ATTILA RUBIO, /HOME 9 FAMILY PAULINE R MGMT CHIROPRAC TRAINING TIC EACH 15 MINUTES CHIROPRAC 92022 ATTILA RUBIO, TIC 9 FAMILY PAULINE R MANIPLTV CHIROPRAC TX TIC EXTRASPIN AL 1/> REGION APPL 73677 ATTILA RUBIO, MODALITY 9 FAMILY PAULINE R 1/> AREAS CHIROPRAC TRACTION TIC MECHANICA L STRAPPING 00680 ATTILA RUBIO, LOW BACK 9 FAMILY PAULINE R CHIROPRAC TIC CHIROPRAC 55800 DREA HOWE 9 FAMILY PAULINE R MANIPULAT CHIROPRAC LLOYD TX TIC SPINAL 3-4 REGIONS MANUAL 55498 ATTILA RUBIO, THERAPY 9 FAMILY PAULINE R TQS 1/> CHIROPRAC REGIONS TIC EACH 15 MINUTES Encounters Encounter Start End Date Code Location Performer Type Date OFFICE 60505 [facility]IT [facility] FAMILY T VISIT HEALTH 15 CTR MINUT[facility] EMERGENCY [address] [facility] MADERA 7 7 REGIONAL DEPARTMEN T VISIT EMERGENCY HIGH/URGE NT SEVERITY OFFICE 16084 [facility] 7 7 SURGICAL T VISIT SPECIALIS [address] [facility] - 7 7 REGIONAL OUTPATIEN MEDICAL T OFFICE [address] [facility] REGIONAL T VISIT MEDICAL [address] [facility] COBOS 7 7 REGIONAL DEPARTMEN T VISIT EMERGENCY HIGH/URGE NT SEVERITY OFFICE 9[address] [facility] 7 7 REGIONAL T VISIT MEDICAL 10 MINUTES OFFICE 47416 STRubin [facility] OUT[facility] 7 7 NAS T VISIT FAMILY 15 MEDICINE [address] E [facility] - 7 7 REGIONAL OUTPATIEN MEDICAL T OFFICE 92300 [facility] 6 6 REGIONAL T VISIT 5 MED[address] [facility] OUT[facility] 6 6 NAS T VISIT FAMILY 15 MEDICINE MINUTES E [facility] - 6 6 REGIONAL OUTPATIEN MEDICAL T [facility] - 6 6 REGIONAL OUTPATIEN MEDIC T EMERGENCY 01739 ST [facility] 6 6 REGIONAL DEPARTMEN MEDIC T VISIT LIMITED/M INOR PROB OFFICE 04638 STRubin LOPEZ OUTPATIEN 6 6 NAS KRI T VISIT FAMILY 15 MEDICINE [address] E [facility] - 6 6 REGIONAL OUTPATIEN MEDIC T OFFICE 99193 [facility] OUTPATIEN 6 6 REGIONAL T VISIT 5 MEDIC MINUTES OFFICE 72121 ALLERGY, LIVAS [facility] ASTHMA & T NEW 45 IMMUNOLOG MINUTES Y OFFICE 68813 [place] ANNA KIA [facility] 6 6 MEDICAL T VISIT SERV 15 FOUNDATIO MINUTES N OFFICE 28590 STRubin HANKS [facility] 6 6 NAS T VISIT FAMILY 15 CARE MINUTES CLINI OFFICE 84282 [facility] REGIONAL T VISIT [address] [facility] - 6 6 REGIONAL OUTPATIEN MEDIC T [facility] - 6 6 REGIONAL OUTPATIEN MEDIC T OFFICE 87536 [facility] REGIONAL T VISIT MEDIC [address] [facility] OUTPATIEN 6 6 REGIONAL T VISIT 5 MEDIC MINUTES OFFICE 13305 STRubin [facility] OUTPATIEN 6 6 NAS NETWORK SECURITY ADMINISTRATOR T VISIT FAMILY 15 CARE [facility] [facility] - 6 6 REGIONAL OUTPATIEN MEDIC T [facility] - 6 6 REGIONAL OUTPATIEN MEDIC T OFFICE 49405 [facility] OUTPATIEN 6 6 REGIONAL T VISIT MEDIC [address] [facility] OUTPATIEN 6 6 REGIONAL T VISIT MEDIC [address] [facility] - 6 6 REGIONAL OUTPATIEN MEDIC T OFFICE [address]74 [facility] OUTPATIEN 6 6 REGIONAL T VISIT [address] [facility] - 6 6 REGIONAL OUTPATIEN MEDIC T OFFICE 133[address] [facility] AM[facility] 6 6 NAS T VISIT FAMILY 15 CARE [facility] [facility] - 6 6 REGIONAL OUTPATIEN MEDIC T OFFICE 09818 [facility] CIERRA AMA OUTPATIEN 6 6 FAMILY T VISIT MEDICINE- 15 OW MINUTES OFFICE 92797 [facility] OUTPATIEN 6 6 REGIONAL T VISIT MEDIC [address] [facility] OUTPATIEN 6 6 REGIONAL T VISIT MEDIC [address] [facility] - 6 6 REGIONAL OUTPATIEN MEDIC T [facility] - 6 6 REGIONAL OUTPATIEN MEDIC T OFFICE 33353 [facility] 6 6 SURGICAL T VISIT SPECIALIS [address] [facility] - 6 6 REGIONAL OUTPATIEN MEDIC T OFFICE 04004 [facility] OUTPATIEN 6 6 REGIONAL T VISIT MEDIC [address] [facility] OUTPATIEN 6 6 REGIONAL T VISIT [address] [facility] - 6 6 REGIONAL OUTPATIEN MEDIC T OFFICE 83319 [facility] HANKS OUTPAT[facility]EN 6 6 NAS T VISIT FAMILY 15 CARE [address] - 6 6 REGIONAL OUTPATIEN MEDIC T OFFICE 13853 [facility] OUTPATIEN 6 6 REGIONAL T VISIT 5 MEDIC MINUTES EMERGENCY 17742 [facility] SOUZA 6 6 REGIONAL LIS DEPARTMEN T VISIT EMERGENCY MODERATE SEVERITY [facility]OSPITAL [facility] - 6 6 REGIONAL OUTPATIEN MEDIC T [facility] - 6 6 REGIONAL OUTPATIEN MEDIC T OFFICE 83275 [facility] OUTPATIEN 6 6 REGIONAL T VISIT 5 MEDIC MINUTES OFFICE 73629 STRubin [place] AMA OUTPATIEN 6 6 NAS T VISIT FAMILY [address] CARE [address] [facility] - 6 6 REGIONAL OUTPATIEN MEDIC T OFFICE 34138 STRubin [place] AMA OUTPATIEN 6 6 NAS T VISIT FAMILY 15 CARE MINUTES CLINI OFFICE 43151 [facility] OUTPATIEN 6 6 REGIONAL T VISIT MEDIC [address] [facility] - 6 6 REGIONAL OUTPATIEN MEDIC T [facility] - 6 6 REGIONAL OUTPATIEN MEDIC T OFFICE 98981 [facility] OUTPATIEN 6 6 REGIONAL T VISIT MEDIC 10 MINUTES OFFICE 76554 JEREMY LUNA [facility] 6 6 KATARINA KATARINA T VISIT [address] [facility] 6 6 REGIONAL DEPARTMEN MEDIC T VISIT LOW/MODER SEVERITY EMERGENCY 28698 SOUZA SOUZA 6 6 LIS LIS DEPARTMEN T VISIT MODERATE SEVERITY [facility]OSPITAL [facility] - 6 6 REGIONAL OUTPATIEN MEDIC T [facility] - 6 6 REGIONAL OUTPATIEN MEDIC T OFFICE 08657 [facility] OUTPATIEN 6 6 REGIONAL T VISIT MEDIC 10 MINUTES OFFICE 31107 STRubin [place] AMA OUTPATIEN 6 6 ANS T VISIT FAMILY 15 CARE MINUTES CLINI OFFICE 35950 [facility] OUTPATIEN 6 6 REGIONAL T VISIT [address] [facility] - 6 6 REGIONAL OUTPATIEN MEDIC T [facility] - 6 6 REGIONAL OUTPATIEN MEDIC T OFFICE 61870 [facility] OUTPATIEN 6 6 REGIONAL T VISIT MEDIC [address] [facility] - 6 6 REGIONAL OUTPATIEN MEDIC T OFFICE 00562 [facility] OUTPAT[facility]EN 6 6 REGIONAL T VISIT 5 MEDIC MINUTES OFFICE 56315 [facility] OUTPATI[facility] 6 6 NAS NETWORK SECURITY ADMINISTRATOR T VISIT FAMILY 15 CARE MINUTES CLINI OFFICE 93501 [facility] OUTPATIEN 6 6 REGIONAL T VISIT 5 MEDIC MINUTES OFFICE [address] [facility] NAOMY OUTPATIEN 6 6 NAS T VISIT FAMILY 10 MEDICINE [address] E [facility] - 6 6 REGIONAL OUTPATIEN MEDIC T [facility] - 6 6 REGIONAL OUTPATIEN MEDIC T EMERGENCY 24324 [facility] PACE LUIS MANUEL 6 6 REGIONAL DEPARTMEN T VISIT EMERGENCY HIGH/URGE NT SEVERITY [facility]PITAL [facility] - 6 6 REGIONAL OUTPATIEN MEDIC T OFFICE 61210 [facility] OUTPATIEN 6 6 REGIONAL T VISIT 5 MEDIC MINUTES OFFICE [address] [facility] OUTPATIEN 6 6 NAS NETWORK SECURITY ADMINISTRATOR T VISIT FAMILY 15 CARE MINUTES [facility] - 6 6 REGIONAL OUTPATIEN MEDIC T [facility] - 6 6 REGIONAL OUTPATIEN MEDIC T EMERGENCY 95908 [facility] 6 6 REGIONAL DEPARTMEN MEDIC T VISIT MODERATE SEVERITY OFFICE 24[address] [facility] OUTPATIEN 6 6 NAS SIE T VISIT FAMILY 15 MEDICINE [address] E [facility] - 6 6 REGIONAL OUTPATIEN MEDIC T OFFICE 21869 [facility] OUTPATIEN 6 6 REGIONAL T VISIT 5 MEDIC MINUTES OFFICE 59299 STRubin FINE OUTPATIEN 6 6 NAS FRA T VISIT FAMILY 15 CARE MINUTES CLINI OFFICE 62797 [facility] OUTPATIEN 6 6 REGIONAL T VISIT [address] [facility] - 6 6 REGIONAL OUTPATIEN MEDIC T OFFICE 84096 [facility] BABAT[facility] OUTPATIEN 5 5 NAS FRA T VISIT FAMILY 25 CARE [address] [facility] - 5 5 REGIONAL OUTPATIEN MEDIC T OFFICE 90402 STRubin HANKS OUTPATIEN 5 5 NAS T VISIT FAMILY 15 CARE MINUTES CLINI OFFICE 11159 [facility] OUTPATIEN 5 5 REGIONAL T VISIT 5 MEDIC MINUTES OFFICE 98523 [facility] OUTPATIEN 5 5 REGIONAL T VISIT [address] [facility] - 5 5 REGIONAL OUTPATIEN MEDIC T OFFICE 64355 [facility] [place] [facility]PAT[facility] 5 5 NAS SIE T VISIT FAMILY 15 MEDICINE MINUTES E [facility] - 5 5 REGIONAL OUTPATIEN MEDIC T OFFICE 18062 [facility] OUTPATIEN 5 5 REGIONAL T VISIT 5 MEDIC MINUTES EMERGENCY 34431 [facility] BEN JUS 5 5 REGIONAL DEPARTMEN T VISIT EMERGENCY HIGH/URGE NT SEVERITY [facility]OSPITAL [facility] - 5 5 REGIONAL OUTPATIEN MEDIC T OFFICE 91665 [place] [facility] OUT[facility] 5 5 SURGICAL III SHARON T VISIT SPECIALIS 15 T MINUTES OFFICE [address]77 [facility] OUTPATIEN 5 5 REGIONAL T VISIT MEDIC [address] [facility] - 5 5 REGIONAL OUTPATIEN MEDIC T OFFICE 22868 [facility] OUTPATIEN 5 5 REGIONAL T VISIT MEDIC 10 MINUTES OFFICE 99820 [place] [facility] 5 5 SURGICAL III SHARON T VISIT SPECIALIS [address] [facility] - 5 5 REGIONAL OUTPATIEN MEDIC T [facility] - 5 5 REGIONAL OUTPATIEN MEDIC T OFFICE 64020 STRubin TAYLOR OUTPATIEN 5 5 NAS NETWORK SECURITY ADMINISTRATOR T VISIT FAMILY 15 CARE MINUTES CLINI OFFICE 38701 [facility] OUTPATIEN 5 5 REGIONAL T VISIT 5 MEDIC MINUTES OFFICE [address] [facility] OUTPATIEN 5 5 REGIONAL T VISIT MEDIC [address] NAS - 5 5 REGIONAL OUTPATIEN MEDIC T OFFICE 42373 [place] [facility] OUT[facility] 5 5 SURGICAL III SHARON T VISIT SPECIALIS 25 T MINUTES EMERGENCY [address] [facility] OVERALL 5 5 REGIONAL PHI DEPARTMEN T VISIT EMERGENCY HIGH/URGE NT SEVERITY EMERGENCY 45851 [facility] SEGOVIA 5 5 REGIONAL CAR DEPARTMEN T VISIT EMERGENCY HIGH/URGE NT SEVERITY EMERGENCY 34670 [facility] SEGOVIA DEPT 5 5 REGIONAL CAR VISIT HIGH EMERGENCY SEVERITY& THREAT [facility] ST NAS - 5 5 REGIONAL OUTPATIEN MEDIC T OFFICE 44352 [place] [facility] OUT[facility] 5 5 SURGICAL III SHARON T NEW 30 SPECIALIS MINUTES T OFFICE 73359 [facility] OUTPATIEN 5 5 REGIONAL T VISIT 5 MEDIC MINUTES EMERGENCY 99854 [facility] NAS SEGOVIA 5 5 REGIONAL CAR DEPARTMEN T VISIT EMERGENCY MODERATE SEVERITY EMERGENCY 40344 ST NAS KWON 5 5 REGIONAL Y LITTLE DEPARTMEN MEDICAL T VISIT C HIGH/URGE NT SEVERITY HOSPITAL ST NAS - 5 5 REGIONAL OUTPATIEN MEDIC T EMERGENCY 63961 ST NAS 5 5 REGIONAL DEPARTMEN MEDIC T VISIT MODERATE SEVERITY OFFICE 47973 ST [facility] OUTPATIEN 5 5 REGIONAL T VISIT [address] NAS - 5 5 REGIONAL OUTPATIEN MEDIC T OFFICE [facility] [facility] OUTPATIEN 5 5 NAS T VISIT FAMILY 15 MEDICINE [address] E [facility] NAS - 5 5 REGIONAL OUTPATIEN MEDIC T OFFICE 11896 [place] OUTPATIEN 5 5 SIE SIE T VISIT [address] [facility] OUTPATIEN 5 5 REGIONAL T VISIT 5 MEDIC MINUTES OFFICE 55530 GURJIT PUGH OUTPATIEN 5 5 PRIMARY T VISIT CARE 15 CENTER MINUTES EMERGENCY 19902 KYLEIGH ARIZMENDI DEPT 4 4 AMIRA AMIRA VISIT HIGH SEVERITY& THREAT FUNCJ EMERGENCY 12506 FRANCO KER FRANCO KER 4 4 DEPARTMEN T VISIT HIGH/URGE NT SEVERITY OFFICE 27529 GUJRIT PUGH OUTPATIEN 4 4 PRIMARY T VISIT CARE 15 CENTER MINUTES EMERGENCY [address]0177 [facility] LINDSAY 4 4 QUYNH COBB DEPARTMEN MED CTR T VISIT HIGH/URGE NT SEVERITY OFFICE 79562 GURJIT ARIAS OUTPATIEN 4 4 PRIMARY JAM T VISIT CARE 25 CENTER MINUTES EMERGENCY 13962 KYLEIGH ARIZMENDI 4 4 AMIRA AMIRA DEPARTMEN T VISIT MODERATE SEVERITY EMERGENCY 95919 STAR 4 4 W [facility] REGIONAL T VISIT MEDICAL HIGH/URGE NT SEVERITY HOSPITAL STAR - 4 4 [facility] T MEDICAL OFFICE 81718 [facility] OUTPATIEN 2 2 JAM JAM T VISIT 15 MINUTES HOSPITAL CENTRAL - 2 2 CONFUCIANIST INPATIENT HOSP OFFICE 34066 [facility] OUTPATIEN 2 2 JAM JAM T VISIT 15 MINUTES HOSPITAL CENTRAL - 2 2 CONFUCIANIST OUTPATIEN HOSP T OFFICE 86324 [facility] OUTPATIEN 2 2 JAM JAM T VISIT 15 MINUTES OFFICE 99437 [facility] OUTPATIEN 2 2 JAM JAM T VISIT 15 MINUTES OFFICE 67750 [facility] OUTPATIEN 2 2 JAM JAM T VISIT 15 MINUTES OFFICE 91830 [facility] OUTPATIEN 2 2 JAM JAM T VISIT 15 MINUTES OFFICE 41730 [facility] OUTPATIEN 2 2 JAM JAM T VISIT 15 MINUTES OFFICE 03314 [facility] OUTPATIEN 2 2 JAM JAM T VISIT 15 MINUTES OFFICE 05419 [facility] OUTPATIEN 2 2 JAM JAM T NEW 45 MINUTES OFFICE 80763 TOÑO ZIMMERMAN ANGEL OUTPATIEN 2 2 T NEW 20 [facility] EMERGENCY 72315 MJ PARRA 2 2 EMERGENCY DEPARTMEN SERVICES T VISIT HIGH/URGE NT SEVERITY EMERGENCY 95535 MJ MOON 2 2 EMERGENCY [facility]R DEPARTMEN SERVICES T VISIT HIGH/URGE NT SEVERITY EMERGENCY 28151 STAR 2 2 W [facility] LANIER T VISIT MEDICAL HIGH/URGE NT SEVERITY HOSPITAL STAR - 2 2 W OUTPATIEN REGIONAL T MEDICAL EMERGENCY 40011 MJ MOON DEPT 2 2 EMERGENCY CHR VISIT SERVICES HIGH SEVERITY& THREAT FUNCJ EMERGENCY [id number] MJ MOON 1 1 EMERGENCY [facility] DEPARTMEN SERVICES T VISIT HIGH/URGE NT SEVERITY EMERGENCY [id number] MJ MOON 0 0 EMERGENCY [facility] DEPARTMEN SERVICES T VISIT HIGH/URGE NT SEVERITY OFFICE [id number] MORGAN RUBIO OUTPATIEN 0 0 FAMILY RIT T VISIT CHIROPRAC 10 TI MINUTES OFFICE 17405 KOO KOO OUTPATIEN 0 0 AIYANA AIYANA T VISIT 10 MINUTES OFFICE 33361 GURJIT PABON SHOWER, OUTPATIEN 0 0 PRIMARY PRANEETH L T VISIT CARE 25 CENTERINC MINUTES OFFICE 76187 KOOCARLOS ALBERTO STACYER OUTPATIEN 0 0 AIYANA AIYANA T NEW 30 MINUTES OFFICE 11295 GURJIT ALVARADO, OUTPATIEN 0 0 PRIMARY LYNNE M T VISIT CARE 10 CENTERINC MINUTES EMERGENCY 80428 ALEXANDRO 0 0 [facility] DEPARTMEN [facility] T VISIT LOW/MODER SEVERITY [facility]OSPITAL [facility]DR[facility] - 0 0 [facility] OUTPATIEN INC T EMERGENCY 16454 MJ ARIZMENDI, DEPT 0 0 EMERGENCY CASH S VISIT SERVICES HIGH SEVERITY& ASSOCIATE THREAT S FUN OFFICE 11827 GURJIT PABON SHOWER, OUTPATIEN 0 0 PRIMARY PRANEETH L T VISIT CARE 15 CENTERINC MINUTES HOSPITAL MEADOWVIE - 0 0 W INPATIENT [facility] OFFICE 10786 [facility], OUTPATIEN 0 0 [facility] T VISIT FAMILY 15 CARE, MINUTES INC. OFFICE 28317 GURJIT LUJAN, OUTPATIEN 0 0 PRIMARY CARRIE T VISIT CARE 15 CENTERINC MINUTES [facility]OSP[facility] - 0 0 W [facility]PITAL ME[facility] - 0 0 [facility] OFFICE 72355 AJAY RIVAS 0 0 PRIMARY PRANEETH L T VISIT CARE 15 CENTERINC MINUTES OFFICE 42554 CARMEN LEWPATIEN 0 0 PRIMARY CARRIE T VISIT CARE 15 CENTERINC MINUTES OFFICE 14193 CARMEN PETERSONPATIEN 0 0 PRIMARY AZRA T VISIT CARE 15 CENTERINC MINUTES OFFICE 80718 AJAY MURILLO 0 0 PRIMARY ROMELIA P T VISIT CARE 15 CENTERINC MINUTES OFFICE 96962 AJAY LEW 9 9 PRIMARY CARRIE T VISIT CARE 15 CENTERINC MINUTES OFFICE 59708 AJAY LEW 9 9 PRIMARY CARRIE T VISIT CARE 25 CENTERINC MINUTES OFFICE 77663 AJAY HOWE 9 9 FAMILY PAULINE R T VISIT CHIROPRAC 10 TIC MINUTES
--- OUTSIDE RECORDS SUMMARY | 2017-07-30 06:44 | External Medical Summary Rpt ---
Author Author JEANETH Castillo, [employer] Organization [employer] Address Unknown Phone Unavailable
--- OUTSIDE RECORDS SUMMARY | 2017-07-30 06:44 | External Medical Summary Rpt | CCD ---
Demographics Preferred Language Serbian Marital Status Unknown Mu-Ism Affiliation Unknown Race Unknown Ethnic Group Unknown Author Author , JEANETH ERIC Address Unknown Phone Immunization No patient found.
--- OUTSIDE RECORDS SUMMARY | 2017-07-30 06:44 | External Medical Summary Rpt | CCD ---
Demographics Preferred Language Sami Marital Status Unknown Scientology Affiliation Unknown Race Unknown Ethnic Group Unknown Author Author , JEANETH ERIC Address Unknown Phone Immunization No patient found.
[2017-07-30 06:47] LABS: LYMPH # 1.7 K/mm3 (0.7-4.5); LYMPH % 11.9 % (10-50.0)
[2017-07-30 06:55] LABS: HEMOGLOBIN 11.2 g/dL (12.2-16.2)
[2017-07-30 07:20] LABS: URINE BLOOD NEGATIVE (NEG)
[2017-07-30 07:25] LABS: URINE BILIRUBIN - DIPSTICK NEGATIVE (NEG)
[2017-07-30 07:28] LABS: AMPHETAMINES/METAMPHETAMINES NEGATIVE ng/mL (<1000)
--- NOTE | 2017-07-30 07:40 | Emergency Room Report ---
History of Present Illness Time Seen by 0627 Presenting Problem in Triage Pt arrived:Walked Presenting Problem:UPPER ABDOMINAL PAIN STARTED YESTERDAY WITH N/V. 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 N Clinical Suspician of Infection? N Mental Status: 1 - Regular (Normal Baseline) Sepsis Risk:Low Sepsis Risk Have you (or family members/close friends) recently traveled outside the [place]? N If Yes, where/when: Have you had exposure to infectious disease within the past month? N TB? Other? Specify: Source patient, RN notes reviewed, family, old records Exam Limitations no limitations Comment upper abd pain with assoc n/v over the last few days- was seen at [facility] a few days ago Cardiac Chest Pain Chest pain indicative of cardiac No Timing/Duration this morning Severity moderate ALLERGIES Coded Allergies: aspirin ("CAUSES SEIZURES" 07/03/17) ketorolac (HEADACHES 07/03/17) Home Medications Active Scripts Ondansetron (Zofran 4MG Odt) 4 MG PO Q6HP PRN NAUSEA AND VOMITING #30 ODT Prov: 07/03/17 ACETAMINOPHEN/DIPHENHYDRAMINE (Percogesic 325-12.5 MG Tablet) 1 TAB PO QIDP PRN pain #20 TAB Prov: 07/03/17 POTASSIUM BICARBONATE/CIT AC (Effer-K 20 Meq Tablet Eff) 20 MEQ PO DAILY #3 TEF Prov: 07/03/17 (Melinda CALVO,Elijah Borrego) History Medical History General CAD? No Angina: No MS: No Hypertension? No Hyperlipidemia? No CHF? No DVT? No PE? No COPD? No Asthma? No Anemia? No GERD? No Gastric ulcers? No GI Bleed? No Hernia? No Thyroid Problems? No Hypothyroidism? No CVA? No Seizures? Yes Diabetes? No Renal Insuffiency? No End Stage Renal Disease? No UTI? No Stones? No GB Disease: No Nephritic Syndrome? No Asplenia? No Hepatitis? No Sickle Cell Disease? No Arthritis? No Migraines? No Cataracts? No Glaucoma? No MRSA? No HIV? No TB? No Anxiety? No Depression? No Cancer? No More? 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 Respiratory denies cough, denies shortness of breath, denies wheezing Cardiovascular denies chest pain, denies syncope Gastrointestinal see HPI, abdominal pain, nausea, vomiting Genitourinary denies: dysuria, frequency, hesitancy, hematuria. Musculoskeletal denies back pain, denies joint pain, denies joint swelling, denies neck pain Skin denies rash Psychiatric/Neurological denies headache, denies seizure (Elijah Lawrence MD) Physical Exam Vital Signs Vital Signs Date Time Temp Pulse Resp B/P Pulse O2 O2 Flow FiO2 Ox Delivery Rate 07/30 1033 98.1 70 14 130/80 99 07/30 0848 14 07/30 0815 98.1 70 20 130/84 99 07/30 0616 98.1 55 22 132/86 99 - WBC >12,000 or <4,000 or 10% bands? 2 or more SIRS Criteria Met? B/P:132/86 MAP:101 Creatinine >2.0? UA output<0.5ml/kg/hr for 2 hrs? Platelet count >100,000? Lactate >2.0mmol/1? INR >1.2 or PTT > than 60 sec? Evidence of Organ Dysfunction? Provider documented clinical suspician of infection? N Sepsis Criteria Count: 1 Sepsis Risk: Low Sepsis Risk General Appearance no apparent distress Eye Exam - bilateral eye PERRL, bilateral eye EOMI Ear, Nose, Throat normal ENT inspection Neck supple Respiratory Status No: respiratory distress. Lung Sounds bilateral: lungs clear. 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 No Results/Orders Laboratory Tests 07/30/17 0725: Lipase 89 07/30/17 0710: Opiates Screen POSITIVE H, Urine Methadone Screen NEGATIVE, Barbiturates NEGATIVE, Phencyclidine Screen NEGATIVE, Amphetamines Screen NEGATIVE, Benzodiazepines Screen POSITIVE H, Cocaine Screen NEGATIVE, Marijuana (THC) Screen POSITIVE H, Urine Color DK YELLOW, Urine Appearance SL CLOUDY, Urine pH 6.0, Ur Specific [place] >= 1.030, Urine Protein TRACE H, Urine Ketones TRACE H, Urine Blood NEGATIVE, Urine Nitrate NEGATIVE, Urine Bilirubin NEGATIVE, Urine Urobilinogen 0.2, Ur Leukocyte Esterase NEGATIVE, Urine WBC 3-5, Ur Squamous Epith Cells 5-10, Urine Bacteria 2+, Urine Mucus 1+, Urine Glucose NEGATIVE 07/30/17 0635: Sodium 136, Potassium 4.2, Chloride 104, Carbon Dioxide 21 L, BUN 10, Creatinine 0.7, Estimated Creat Clear 129, Estimated GFR (MDRD) 99, Glucose 103, Calcium 8.8, Total Bilirubin 0.5, AST 56 H, ALT 32, Alkaline Phosphatase 81, Total Protein 7.7, Albumin 3.5, Globulin 4.2 H, Albumin/Globulin Ratio 0.8 L, WBC 14.5 H, RBC 4.53, Hgb 11.2 L, Hct 34.8 L, MCV 76.7 L, RDW 16.2, Plt Count 295, MPV 8.1, Gran % 82.0 H, Gran # 11.9 H, Lymphocytes % 11.9, Monocytes % 3.2, Eosinophils % 2.7, Basophils % 0.3, Lymphocytes # 1.7, Monocytes # 0.5, Eosinophils # 0.4, Basophils # 0.0, PUBS MCHC 32.6, MCH 25.0 L Current Medication Orders Sig/Zhou Start time Last Medication Dose Route Stop Time Status Admin Hydromorphone HCl 0 .STK-MED ONE 07/30 847 DC .ROUTE Hydromorphone HCl 1 MG ONCE ONE 07/30 845 DC 07/30 IV 07/30 Promethazine HCl 12.5 MG ONCE ONE 07/30 815 DC 07/30 IV 07/30 0816 0813 Sodium Chloride 25 ML ONCE ONE 07/30 0815 DC IV 07/30 0829 Promethazine HCl 0 .STK-MED ONE 07/30 0809 DC .ROUTE Famotidine 20 MG ONCE ONE 07/30 0800 DC 07/30 IV 07/30 0801 0754 Ondansetron HCl 4 MG ONCE ONE 07/30 08 DC 07/30 IV 07/30 0801 0755 Sodium Chloride 1,000 ML .Q4H 07/30 08 DCD 07/30 IV 07/30 1159 0754 Sodium Chloride 10 ML PRN PRN 07/30 08 DCD IV 07/31 0749 Sodium Chloride 8 ML ONCE ONE 07/30 08 DC IV 07/30 0801 Famotidine 0 .STK-MED ONE 07/30 0754 DC IV Sodium Chloride 1,000 ML .STK-MED ONE 07/30 0754 DC IV Ondansetron HCl 0 .STK-MED ONE 07/30 0753 DC .ROUTE Sodium Chloride 10 ML PRN PRN 07/30 0645 DCD IV 07/31 0643 Orders Procedure Date/time Status DIET-NOTHING BY MOUTH 07/[address] ABD/PELVIS REQ 07/30 0844 Complete LIPASE 07/30 0741 Complete CULTURE, URINE 07/30 0710 Active IV SALINE LOCK 07/30 0643 Active URINALYSIS/COMPLETE 07/30 0641 Complete URINE 07/30 0641 Complete DRUG ABUSE SCREEN (TRIAGE) 07/30 0641 Complete CBC WITH AUTO DIFF 07/30 0641 Complete CHEM 12 PROFILE 07/30 0641 Complete LABS/Meds/Orders Anupam was queried for this patient? Yes Comment [id number] 3 rxs. last rx tramadol 02/25/17. XRAY/CT/US XRAY/CT/US CT abdomen, pelvis Comment CT scan interpreted by radiologist: Small RIGHT ovarian cyst Progress - 8:00 AM: At shift change, patient report received from Dr. Owens, and care of the patient assumed by me at this time. Records received from [facility]. Reviewed. The patient presented with the same symptoms. She had a workup including a gallbladder ultrasound which showed polyps but no stones or signs of cholecystitis. She had a leukocytosis with a white blood count of 20.3. Urine had 6-10 white cells and she was diagnosed with UTI. She had hypokalemia. Urine drug screen was positive for benzodiazepines, opiates, and marijuana. She was diagnosed with substance abuse and remarks were made that it was suspected she might be in withdrawal. She was given a dose of IV morphine. She apparently was not happy when she did not receive stronger pain medication and pulled out her IV and signed out AGAINST MEDICAL ADVICE. She apparently did not complete her treatment with intravenous Rocephin and potassium. Also noted, the patient was seen here July 03 for the same symptoms. Pain was RIGHT upper quadrant. She had a workup including a CT scan of the abdomen which showed findings consistent with an ovarian cyst. 8:40 AM: Patient seen and examined. She states she has had constant midline epigastric pain and intractable vomiting for 3 days. She had the same symptoms July 03 when seen here and also had the same symptoms one prior time a few years ago, 2011, and says that she was told her gallbladder "was fine". Abdomen soft with mid-epigastric > RUQ tenderness. Discussed results with patient. Gallbladder ultrasound shows polyps, no signs of cholecystitis, no stones. No obvious reason for her gallbladder to be causing the symptoms. She continues to complain of severe pain. I discussed her drug screen results. She attributes the positive opiate result at [facility] to the medication administered there, although it appears that the physician ordered the urine to be collected before the pain medication was given. She tells me that she received a Tylenol No. 3 from a relative yesterday. She cannot explain the positive benzodiazepine screen at [facility] and here. She does admit to marijuana use. She denies heroin use. She denies the possibility of withdrawal. States recently moved here from [place] 2 months ago, does not have a PCP. I advised that I would administer 1 dose of pain medication. CT scan of abdomen has been ordered. If CT scan is negative, not showing any significant process, I advised her I would not prescribe pain medication at discharge. She says she understands. 10:20 AM: The patient's symptoms all resolved with one dose of Dilaudid. This certainly raises the possibility of drug withdrawal. I also mentioned to her the possibility of cyclical vomiting due to cannabis and advised stopping cannabis use as well. (Henrik Blevins MD) Departure Departure Time of Disposition 08 Disposition Still a Patient Clinical Impression Primary Impression: Abdominal pain Qualifiers: Abdominal location: epigastric Qualified Code: R10.13 - Epigastric pain Condition STABLE ED Critical Care Critical Care No (Elijah Lawrence MD) Departure Referrals RADHA MATIAS Inter Com Installer: call for appointment Patient Instructions DI for Abdominal Pain-Adult Additional Instructions You are being provided with a list of physicians available for follow-up of your condition. Please call a physician on this list to arrange a follow-up appointment as soon as possible. Additional instructions for ABDOMINAL PAIN: Return immediately if worsening abdominal pain, vomiting, shortness of breath, fever, vomiting of blood or abdominal distention. Prescriptions Current Visit Scripts PROMETHAZINE HCL (Phenergan 25MG Tab (Geq)) 25 MG PO Q6HP PRN N/V #14 TAB OMEPRAZOLE MAGNESIUM (Prilosec 20MG) 20 MG PO DAILY #20 TAB (Henrik Blevins MD) at 0806 at 1558
--- NOTE | 2017-07-30 09:19 | RADIOLOGY REPORT PS360 ---
US GALLBLADDER (ABD LTD) HISTORY: Right upper quadrant pain abd pain ORDERING PHYSICIAN: Elijah Lawrence MD PATIENT AGE: 27 years COMPARISON: None FINDINGS: PANCREAS: Unremarkable. No obvious mass or abnormal fluid collection. No ductal dilatation LIVER: No focal liver lesions demonstrated. Homogeneous echogenicity. No intrahepatic biliary ductal dilatation evident RIGHT KIDNEY: Unremarkable. Normal size and echogenicity. No hydronephrosis GALLBLADDER: Small area of increased echogenicity is present along the superior aspect of the gallbladder at 4 mm suggesting a small polyp. This does not shadow. No mobile shadowing stones evident. Common bile duct is normal at 3 mm. No gallbladder wall thickening or pericholecystic fluid. IMPRESSION: Possible small gallbladder polyp otherwise negative right upper quadrant ultrasound
--- NOTE | 2017-07-30 10:01 | RADIOLOGY REPORT PS360 ---
CT ABD PELVIS W/O CONTRAST CLINICAL INDICATION: EPIGASTRIC PAIN ORDERING PHYSICIAN: Henrik Blevins MD PATIENT AGE: 27 years COMPARISON: 07/03/2017 TECHNIQUE: Axial images obtained with sagittal and coronal reformats. PROCEDURE: Oral Contrast: None IV Contrast: None . FINDINGS: No acute finding in the lower chest. The liver, gallbladder, pancreas, spleen, adrenal glands, kidneys, ureters, and urinary bladder have an unremarkable unenhanced CT appearance. No intestinal obstruction or free air. The appendix has an unremarkable appearance. There is no evidence of diverticulitis. There is a small amount fluid in the cul-de-sac. Right adnexa remains somewhat prominent and may be due to right ovarian cystic involvement at 2 cm. No acute bony anomalies. IMPRESSION: 1. There is a small amount fluid in the cul-de-sac and there is a small right ovarian cyst. 2. Otherwise negative CT abdomen pelvis without contrast
[2017-07-30] MEDS ORDERED: PRILOSEC20 M1 PO (10:14)
[2017-07-30] MEDS ORDERED: PHENERGAN25 M3 PO (10:14)
[2017-07-30 10:33] VITALS: BP 130/80
== END 2017-07-30 10:34 | disposition still patient (30) ==
LOC: ER 06:13
PROVIDERS: Emergency Medicine
DX: R10.13 Epigastric pain (principal); K82.4 Cholesterolosis of gallbladder; F12.10 Cannabis abuse, uncomplicated; N83.201 Unspecified ovarian cyst, right side; F17.210 Nicotine dependence, cigarettes, uncomplicated
CPT/HCPCS: J2405